=== PATIENT | female | born 1930 | race Caucasian/White ===

== ENCOUNTER 2017-06-20 14:26 | Emergency (ER) | payer OTHER ==
[2017-06-20 14:31] VITALS: BP 146/83; PULSE 100; TEMP 98.1; BMI 18.1
--- NOTE | 2017-06-20 16:20 | PDOC ---
History of Present Illness <Maco Dietrich - Last Filed: 06/20/17 19:31> - General History Source: Patient Exam Limitations: No Limitations - History of Present Illness Initial Comments: 06/20/17 16:04 Patient is an 87F with history of HTN here today complaining of leg swelling for the past three days. She denies associated chest pain, shortness of breath, nausea, vomiting, fevers and chills. She says that the right leg is more swollen than the left, with erythema on the right side. She denies any recent trauma. She denies any increased warmth in the leg. She denies any history of blood clots, cancer, recent travel or being bed bound. She states that she sleeps in a chair that is mostly upright because she gets short of breath with laying flat. <Eduardo Alvarado - Last Filed: 06/20/17 23:19> - General Chief Complaint: Edema Stated Complaint: SWELLING ANKLES/LEGS Time Seen by Provider: 06/20/17 14:57 Past History <Maco Dietrich - Last Filed: 06/20/17 19:31> - Past Medical History HTN: Yes - Suicide/Smoking/Psychosocial Hx Smoking History: Never smoked Have you smoked in the past 12 months: No Number of Cigarettes Smoked Daily: 0 Hx Alcohol Use: No Drug/Substance Use Hx: No Substance Use Type: None <Eduardo Alvarado - Last Filed: 06/20/17 23:19> - Past Medical History Allergies/Adverse Reactions: Allergies Allergy/AdvReac Type Severity Reaction Status Date / Time No Known Allergies Allergy Verified 06/20/17 14:31 Home Medications: Ambulatory Orders Telmisartan [Micardis] 20 mg PO DAILY 09/14/15 Rivaroxaban [Xarelto -] 15 mg PO BID #41 tab 06/20/17 Rivaroxaban [Xarelto -] 20 mg PO BID #28 tablet 06/20/17 Review of Systems - Review of Systems Comments:: 06/20/17 16:20 GENERAL/CONSTITUTIONAL: No fever or chills. No weakness. HEAD, EYES, EARS, NOSE AND THROAT: No change in vision. No sore throat. CARDIOVASCULAR: No chest pain or shortness of breath RESPIRATORY: No cough, wheezing, or hemoptysis. GASTROINTESTINAL: No nausea, vomiting, diarrhea or constipation. GENITOURINARY: No dysuria, frequency, or change in urination. MUSCULOSKELETAL: No joint or muscle swelling or pain. No neck or back pain. SKIN: No rash NEUROLOGIC: No headache, vertigo, loss of consciousness, or change in strength/ sensation. ALLERGIC/IMMUNOLOGIC: No hives or skin allergy. <Eduardo Alvarado - Last Filed: 06/20/17 23:19> *Physical Exam - Vital Signs Last Vital Signs Temp Pulse Resp BP Pulse Ox 98.1 F 100 H 20 146/83 96 06/20/17 14:28 06/20/17 14:28 06/20/17 14:28 06/20/17 14:28 06/20/17 14:28 <Maco Dietrich - Last Filed: 06/20/17 19:31> - Vital Signs Last Vital Signs Temp Pulse Resp BP Pulse Ox 98.1 F 100 H 20 146/83 96 06/20/17 14:28 06/20/17 14:28 06/20/17 14:28 06/20/17 14:28 06/20/17 14:28 - Physical Exam Comments: 06/20/17 16:22 GENERAL: Awake, alert, and fully oriented, in no acute distress HEAD: No signs of trauma, normocephalic, atraumatic EYES: PERRLA, EOMI, sclera anicteric, conjunctiva clear ENT: Auricles normal inspection, hearing grossly normal, nares patent, oropharynx clear without exudates. Moist mucosa NECK: Normal ROM, supple, no lymphadenopathy, JVD, or masses LUNGS: No distress, speaks full sentences, clear to auscultation bilaterally HEART: Regular rate and rhythm, normal S1 and S2, no murmurs, rubs or gallops, peripheral pulses normal and equal bilaterally. ABDOMEN: Soft, nontender, normoactive bowel sounds. No guarding, no rebound. No masses L LE+ pitting edema to ray, no erythema, normal cap refill, no cyanosis R LE+ pitting edema to ray, erythematous, normal cap refill, no cyanosis NEUROLOGICAL: Cranial nerves II through XII grossly intact. Normal speech, normal gait, no focal sensorimotor deficits SKIN: Warm, Dry, normal turgor, no rashes or lesions noted. <Eduardo Alvarado - Last Filed: 06/20/17 23:19> ED Treatment Course - LABORATORY CBC & Chemistry Diagram: 06/20/17 16:20 06/20/17 16:20 - ADDITIONAL ORDERS Additional order review: Laboratory Results 06/20/17 06/20/17 16:20 16:20 PT with INR 10.10 INR 0.92 Sodium 129 L Potassium 4.0 Chloride 90 L Carbon Dioxide 32 Anion Gap 7 L BUN 12 D Creatinine 0.5 L Creat Clearance w eGFR > 60 Random Glucose 95 Calcium 9.2 Magnesium 2.1 Total Bilirubin 0.3 D AST 22 ALT 21 Alkaline Phosphatase 90 Creatine Kinase 47 Troponin I < 0.02 B-Natriuretic Peptide 197.43 Total Protein 7.2 Albumin 3.7 06/20/17 16:20 RBC 3.95 MCV 91.2 MCHC 34.8 RDW 13.8 MPV 6.9 L Neutrophils % 74.9 Lymphocytes % 13.4 Monocytes % 10.0 Eosinophils % 1.2 Basophils % 0.5 - Medications Given in the ED: ED Medications Discontinued Medications Generic Name Dose Route Start Last Admin Trade Name Gilsonq PRN Reason Stop Dose Admin Rivaroxaban 15 mg 06/20/17 19:07 06/20/17 19:30 Xarelto - PO 06/20/17 19:08 15 mg ONCE ONE Administration <Maco Dietrich - Last Filed: 06/20/17 19:31> - LABORATORY CBC & Chemistry Diagram: 06/20/17 16:20 06/20/17 16:20 - RADIOLOGY Radiology Studies Ordered: Category Date Time Status CHEST X-RAY PORTABLE* [RAD] Stat Radiology 06/20/17 15:50 Ordered DUPLEX VASCUL US-1 LEG [US] Stat Ultrasound 06/20/17 15:51 Ordered <Eduardo Alvarado - Last Filed: 06/20/17 23:19> Medical Decision Making - Medical Decision Making 06/20/17 19:[address] Styles placed. Dr. Gil is absorption operator. Awaiting call back. <Maco Dietrich - Last Filed: 06/20/17 19:31> - Medical Decision Making 06/20/17 16:24 87F with history of HTN here today complaining of leg swelling, right more than left with erythema on the right side. Tachycardic to 100. Vital signs otherwise normal. Differential diagnosis includes, but is not limited to: DVT, CHF exacerbation, kidney failure, cellulitis. Will evaluate with labs, cxr, dvt ultrasound, and ecg. 06/20/17 17:24 Laboratory Tests 06/20/17 06/20/17 16:20 16:20 WBC 7.2 Hgb 12.5 Hct 36.0 Plt Count 318 Sodium 129 L Chloride 90 L BUN 12 D Creatinine 0.5 L Troponin I < 0.02 B-Natriuretic Peptide 197.43 CBC normal. CMP shows sodium of 129, chloride of 90. Trop neg, BNP neg. 06/20/17 17:33 EKG shows normal sinus rhythm, normal rate, normal axis. QTC 423. No st elevations. No t-wave abnormalities. 06/20/17 23:18 Ultrasound shows DVT in popliteal vein. Started on xeralto. Plan discussed with PCP team, agrees with plan to discharge. Discharged with tight PCP follow up. <Eduardo Alvarado - Last Filed: 06/20/17 23:19> *DC/Admit/Observation/Transfer <Maco Dietrich - Last Filed: 06/20/17 19:31> <Eduardo Alvarado - Last Filed: 06/20/17 23:19> Diagnosis at time of Disposition: DVT (deep venous thrombosis) Qualifiers: DVT location: lower extremity Affected thrombotic vein of extremity: popliteal Chronicity: acute Laterality: right Qualified Code(s): I82.431 - Acute embolism and thrombosis of right popliteal vein - Discharge Dispostion Disposition: HOME Condition at time of disposition: Good - Prescriptions Prescriptions: Rivaroxaban [Xarelto -] 15 mg PO BID #41 tab Rivaroxaban [Xarelto -] 20 mg PO BID #28 tablet - Referrals Referrals: Eduardo Styles MD [Primary Care Provider] - - Patient Instructions Printed Discharge Instructions: DI for Deep Vein Thrombosis
[2017-06-20 16:31] LABS: BASOPHIL 0.5 % (0-2.0); EOSINOPHIL 1.2 % (0-4.5); MCH 31.8 pg (25.7-33.7); MCHC 34.8 g/dl (32.0-36.0); MEAN CELL VOLUME 91.2 fl (80-96); MEAN PLT VOLUME 6.9 fl (7.5-11.1); NEUTROPHILS 74.9 % (42.8-82.8); PLATELET COUNT 318 K/MM3 (134-434); RDW 13.8 % (11.6-15.6); WHITE BLOOD COUNT 7.2 K/mm3 (4.0-10.0)
--- NOTE | 2017-06-20 16:35 | PDOC ---
Attending Attestation - Resident Resident Name: Eduardo Alvarado - ED Attending Attestation I have performed the following: I have examined & evaluated the patient, The case was reviewed & discussed with the resident, I agree w/resident's findings & plan, Exceptions are as noted - HPI HPI: 06/20/17 16:29 87 yo F with h/o HTN here with 3 days of leg swelling, right greater than left. no history of dvt or pe no recent travel. no cp or sob. no mod factors. no fever. no pain. no injury. does have remote history of breast ca over 10 years ago. no recurrence. - Physicial Exam PE: 06/20/17 16:31 on exam awake alert lungs clear heart rrr no mrg. abd soft nt nd. ext wwp. bilat edema. R> L. mild erythema right lower anterior ray, no warmth. no crepitus. 2 + dp/ pt. - Medical Decision Making 06/20/17 16:35 differential chf, cellulitis, renal failure, dvt. plan labs ekg cxr doppler right leg. if all negative plan to treat for cellulitis with outpt abx, and followup outpt.
[2017-06-20 16:52] LABS: INR 0.92 (0.82-1.09); PROTHROMBIN TIME (PATIENT) 10.1 SEC (9.98-11.88)
[2017-06-20 17:09] LABS: ALBUMIN 3.7 g/dl (3.4-5.0); ANION GAP 7 (8-16); BILIRUBIN,TOTAL 0.3 mg/dL (0.2-1.0); CALCIUM 9.2 mg/dL (8.5-10.1); CO2 32 mmol/L (21-32); CREATININE 0.5 mg/dL (0.55-1.02); GLUCOSE,RANDOM 95 mg/dL (74-106); MAGNESIUM 2.1 mg/dL (1.8-2.4); SGOT/AST 22 U/L (15-37); SGPT/ALT 21 U/L (12-78); TOT PROT 7.2 g/dl (6.4-8.2)
[2017-06-20 17:12] LABS: ALK PHOS 90 U/L (45-117); CPK 47 IU/L (26-192); TROPONIN I < 0.02 ng/ml (0.00-0.05)
[2017-06-20] MEDS ORDERED: RIVAROXABAN 15 MG TABLET PO ONE (19:07)
--- NOTE | 2017-06-21 08:37 | EKG ---
Test Reason : Blood Pressure : / mmHG Vent. Rate : 068 BPM Atrial Rate : 068 BPM P-R Int : 188 ms QRS Dur : 100 ms QT Int : 398 ms P-R-T Axes : 057 -18 028 degrees QTc Int : 423 ms POOR DATA QUALITY, INTERPRETATION MAY BE ADVERSELY AFFECTED NORMAL SINUS RHYTHM SEPTAL INFARCT (CITED ON OR BEFORE 21-JUN-1999) ABNORMAL ECG Confirmed by MD ROSALEE, XIN ([id number]) on 06/21/2017 8:37:30 AM Referred By: Confirmed By:XIN TURK MD
== END 2017-06-20 19:48 | disposition home or self-care (01) ==
LOC: JER 14:26
DX: I82.431 Acute embolism and thrombosis of right popliteal vein (principal); I10 Essential (primary) hypertension
CPT/HCPCS: 36415; 71010-TC; 80053; 83735; 83880; 84484; 85025; 85610; 93005; 93010; 93971-TC; 99281-25

== ENCOUNTER → 2017-11-13 | Day surgery (SDC) | payer OTHER ==
[2017-11-13 09:19] LABS: BASO % 0.6 % (0-2.0); EOS % 0.8 % (0-4.5); HEMATOCRIT 35.7 % (32.4-45.2); HEMOGLOBIN 11.6 GM/dL (10.7-15.3); LYMPH % 20.9 % (8-40); MCH 28.5 pg (25.7-33.7); MCHC 32.4 g/dl (32.0-36.0); MEAN CELL VOLUME 87.8 fl (80-96); MEAN PLT VOLUME 7.2 fl (7.5-11.1); MONO % 10.8 % (3.8-10.2); NEUT % 66.9 % (42.8-82.8); PLATELET COUNT 385 K/MM3 (134-434); RBC 4.06 M/mm3 (3.60-5.2); RDW 14.6 % (11.6-15.6); WHITE BLOOD COUNT 7.9 K/mm3 (4.0-10.0)
[2017-11-13 09:42] LABS: INR 0.96 (0.82-1.09); PROTHROMBIN TIME (PATIENT) 10.9 SEC (9.98-11.88)
== END | disposition home or self-care (01) ==
LOC: JRADIR 09:00
PROVIDERS: ATTEND Internal Medicine
PROC: BQ01YZZ Plain Radiography of Left Hip using Other Contrast (ICD-10-PCS; principal; 2017-11-13)
PROC: 3E0U33Z Introduction of Anti-inflammatory into Joints, Percutaneous Approach (ICD-10-PCS; 2017-11-13)
DX: M16.12 Unilateral primary osteoarthritis, left hip (principal); M25.552 Pain in left hip
CPT/HCPCS: 27093; 36415; 73525-TC-FY; 76000-TC-FY; 85025; 85610

== ENCOUNTER 2017-11-18 12:20 | Inpatient (IN) | payer OTHER ==
--- NOTE | 2017-11-18 14:16 | PDOC ---
History of Present Illness - General Chief Complaint: Injury Stated Complaint: FALL Time Seen by Provider: 11/18/17 13:52 History Source: Patient Exam Limitations: No Limitations - History of Present Illness Initial Comments: 11/18/17 14:09 87F with pmh of HTN and DVT on xarelto presents to the ED after an unwitnessed fall where she tripped and fell on her back, no LOC, unwitnessed. Was found 10min later by her son, helped her get back up as she couldnt get back up on her own. Denies headache, nausea, vomiting 11/18/17 15:23 11/18/17 17:31 Past History - Past Medical History Allergies/Adverse Reactions: Allergies Allergy/AdvReac Type Severity Reaction Status Date / Time No Known Allergies Allergy Verified 11/18/17 12:33 Home Medications: Ambulatory Orders Telmisartan [Micardis] 20 mg PO DAILY 09/14/15 Rivaroxaban [Xarelto -] 15 mg PO BID #41 tab 06/20/17 Rivaroxaban [Xarelto -] 20 mg PO BID #28 tablet 06/20/17 COPD: No DVT: Yes (on blood thinner) HTN: Yes - Suicide/Smoking/Psychosocial Hx Smoking History: Never smoked Have you smoked in the past 12 months: No Number of Cigarettes Smoked Daily: 0 Hx Alcohol Use: No Drug/Substance Use Hx: No Substance Use Type: None Review of Systems - Review of Systems Able to Perform ROS?: Yes Is the patient limited Ukrainian proficient: No Constitutional: No: Symptoms Reported HEENTM: No: Symptoms Reported Respiratory: No: Symptoms reported Cardiac (ROS): Yes: Chest Pain (right parasternal) ABD/GI: No: Symptoms Reported : No: Symptoms Reported Musculoskeletal: Yes: Back Pain Integumentary: No: Symptoms Reported Neurological: No: Symptoms reported *Physical Exam - Vital Signs Last Vital Signs Temp Pulse Resp BP Pulse Ox 97.2 F L 81 18 131/66 97 11/18/17 12:30 11/18/17 12:30 11/18/17 12:30 11/18/17 12:30 11/18/17 12:30 - Physical Exam General Appearance: Yes: Appropriately Dressed, Thin. No: Apparent Distress HEENT: positive: EOMI, EDGAR. negative: Normal ENT Inspection Respiratory/Chest: positive: Lungs Clear, Normal Breath Sounds. negative: Chest Tender, Respiratory Distress Cardiovascular: positive: Regular Rhythm, Regular Rate, S1, S2 Female Pelvic Exam: positive: normal external exam Gastrointestinal/Abdominal: positive: Normal Bowel Sounds, Flat, Soft. negative : Tender Musculoskeletal: positive: Other (pain in parasternal chest on the right and back rib pain on the right). negative: CVA Tenderness Extremity: positive: Normal Capillary Refill, Normal Inspection Integumentary: positive: Normal Color, Dry, Warm Neurologic: positive: Fully Oriented, Alert, Normal Mood/Affect ED Treatment Course - LABORATORY CBC & Chemistry Diagram: 11/18/17 14:38 11/18/17 14:38 Medical Decision Making - Medical Decision Making 11/18/17 15:[address] will evaluate potential source of fall, ekg, cxr, 11/18/17 17:54 elevated wbc count. hyponatremic. Dr styles, pcp, paged 11/18/17 19:16 Patient signed out to Dr. Szymanski *DC/Admit/Observation/Transfer - Referrals Referrals: Eduardo Styles MD [Primary Care Provider] - - Patient Instructions - Post Discharge Activity
[2017-11-18 15:01] LABS: HEMATOCRIT 33.9 % (32.4-45.2); HEMOGLOBIN 10.9 GM/dL (10.7-15.3); MCH 27.7 pg (25.7-33.7); MCHC 32.2 g/dl (32.0-36.0); MEAN PLT VOLUME 7.1 fl (7.5-11.1); PLATELET COUNT 357 K/MM3 (134-434); RBC 3.94 M/mm3 (3.60-5.2); RDW 14.2 % (11.6-15.6); WHITE BLOOD COUNT 26.6 K/mm3 (4.0-10.0)
[2017-11-18 15:25] LABS: ALBUMIN 3.4 g/dl (3.4-5.0); ANION GAP 12 (8-16); BILIRUBIN,TOTAL 0.4 mg/dL (0.2-1.0); BLOOD UREA NITROGEN 12 mg/dL (7-18); CALCIUM 9.4 mg/dL (8.5-10.1); CHLORIDE 91 mmol/L (98-107); CO2 29 mmol/L (21-32); CREATININE 0.5 mg/dL (0.55-1.02); GLUCOSE,RANDOM 138 mg/dL (74-106); POTASSIUM 3.5 mmol/L (3.5-5.1); SGOT/AST 37 U/L (15-37); SGPT/ALT 39 U/L (12-78); SODIUM 132 mmol/L (136-145); TOT PROT 6.8 g/dl (6.4-8.2)
[2017-11-18 15:26] LABS: ALK PHOS 80 U/L (45-117)
[2017-11-18 15:55] LABS: INR 2.04 (0.82-1.09); PROTHROMBIN TIME (PATIENT) 23.1 SEC (9.98-11.88)
[2017-11-18 15:56] LABS: ANISOCYTOSIS 0; MACROCYTOSIS 0; PLATELET ESTIMATE NORMAL
[2017-11-18] MEDS ORDERED: SODIUM CHLORIDE 1,000 ML IV STA (18:09)
--- NOTE | 2017-11-18 19:45 | PDOC ---
*Physical Exam - Vital Signs Last Vital Signs Temp Pulse Resp BP Pulse Ox 97.2 F L 81 18 131/66 97 11/18/17 12:30 11/18/17 12:30 11/18/17 12:30 11/18/17 12:30 11/18/17 12:30 - Physical Exam Comments: 11/18/17 19:58 General Appearance: Nourished. No Apparent Distress HEENT: No Pharyngeal Erythema, Tonsillar Exudate, Tonsillar Erythema Neck: No Cervical Lymphadenopathy Respiratory/Chest: Lungs Clear, Normal Breath Sounds. No Crackles, Rales, Rhonchi, Wheezing Cardiovascular: Regular Rhythm, Regular Rate. No Murmur, Gallops, Rubs Gastrointestinal/Abdominal: Normal Bowel Sounds, Soft. No Guarding, Rebound, Tenderness Musculoskeletal: No CVA Tenderness Extremity: Normal Capillary Refill Integumentary: Normal Color, Dry, Warm Neurologic: Fully Oriented, Alert, Normal Mood/Affect, Normal Response, ED Treatment Course - LABORATORY CBC & Chemistry Diagram: 11/18/17 14:38 11/18/17 14:38 - ADDITIONAL ORDERS Additional order review: Laboratory Results 11/18/17 11/18/17 11/18/17 14:51 14:38 14:38 PT with INR 23.10 H INR 2.04 H D Sodium 132 L Potassium 3.5 Chloride 91 L Carbon Dioxide 29 Anion Gap 12 BUN 12 Creatinine 0.5 L Creat Clearance w eGFR > 60 Random Glucose 138 H Calcium 9.4 Total Bilirubin 0.4 D AST 37 ALT 39 Alkaline Phosphatase 80 Troponin I < 0.02 Total Protein 6.8 Albumin 3.4 11/18/17 14:38 RBC 3.94 MCV 86.0 MCHC 32.2 RDW 14.2 MPV 7.1 L Neutrophils % No Result Required. Lymphocytes % No Result Required. - Medications Given in the ED: ED Medications Discontinued Medications Generic Name Dose Route Start Last Admin Trade Name Freq PRN Reason Stop Dose Admin Sodium Chloride 1,000 mls @ 1,000 mls/hr 11/18/17 18:09 11/18/17 18:29 Normal Saline - IV 11/18/17 19:08 1,000 mls/hr ASDIR STA Administration Progress Note - Progress Note Progress Note: The patient is an 87 year old female who presents for evaluation following an unwitnessed fall. The patient's lab work was remarkable for a leukocytosis with 80% bands. She is pending admission for an unexplained leukocytosis to 26 and unwitnessed fall. Medical Decision Making - Medical Decision Making 11/18/17 20:22 Discussed the case with the hospitalist team who accepted the patient for admission. *DC/Admit/Observation/Transfer Diagnosis at time of Disposition: Leukocytosis Qualifiers: Leukocytosis type: unspecified Qualified Code(s): D72.829 - Elevated white blood cell count, unspecified Fall Qualifiers: Encounter type: initial encounter Qualified Code(s): W19.XXXA - Unspecified fall, initial encounter - Discharge Dispostion Condition at time of disposition: Stable Admit: Yes - Referrals Referrals: Eduardo Styles MD [Primary Care Provider] - - Patient Instructions - Post Discharge Activity
--- NOTE | 2017-11-18 20:26 | HP ---
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 The son that lives with her had been out for about 45mins walking the dog, so does not know for how long she was down. Patient usually ambulates with a walker because of previous R hip replacement and L hip now in need of replacement. She was found close to the stairs (the son assumed she crawled there from the room and dresser to try to get herself up). He also found the walker in the kitchen, while her glasses and lifelock where found on the dresser with change of clothes, indicating she probably fell in the room because she was using the cane and and not the walker. Due to patient's dementia, it is difficult to confirm if she hit her head or not, or lost consciousness, or had seizures. However, no urinary or fecal soiling were noted. At baseline, Pt is able to carry out activities of daily living including cooking, but is forgetful especially of dates and names ( of her son). She assumed she fell in the kitchen, but was found in the [address] so her history cannot be corroborated. No palpitations, no fever, no CP, no diaphoresis, weakness of any part of her body. Urine described as limited qnt and deep colored/reddish by son ER course was notable for: (1) WBC-26.6, INR-2.04, Na-132, Cl-91, trop <0.02 (2) CT head- No interval change , or acute intracran pathology (3) EKG- pending (4) UA- pending (5) urine/ bld cx (6) Received 1L of NS in ED Recent Travel: PAST MEDICAL HISTORY: dementia, HTN, DVT (on xarelto), recurrent falls (last fall 9months ago before use of walker) R breast cancer (2010) PAST SURGICAL HISTORY: R hip replacement R breast surgery (likely lumpectomy) Social History: Smoking: Alcohol: Drugs: Family History: Allergies No Known Allergies Allergy (Verified 11/18/17 12:33) HOME MEDICATIONS: Home Medications Medication Instructions Recorded Telmisartan [Micardis] 20 mg PO DAILY 09/14/15 Rivaroxaban [Xarelto -] 20 mg PO BID #28 tablet 06/20/17 REVIEW OF SYSTEMS CONSTITUTIONAL: Absent: fever, chills, diaphoresis, generalized weakness, malaise, loss of appetite, weight change HEENT: Absent: rhinorrhea, nasal congestion, throat pain, throat swelling, difficulty swallowing, mouth swelling, ear pain, eye pain, visual changes CARDIOVASCULAR: Absent: chest pain, syncope, palpitations, irregular heart rate, lightheadedness , peripheral edema RESPIRATORY: Absent: cough, shortness of breath, dyspnea with exertion, orthopnea, wheezing, stridor, hemoptysis GASTROINTESTINAL: Absent: abdominal pain, abdominal distension, nausea, vomiting, diarrhea, constipation, melena, hematochezia GENITOURINARY: Absent: dysuria, frequency, urgency, hesitancy, hematuria, flank pain, genital pain MUSCULOSKELETAL: Absent: myalgia, arthralgia, joint swelling, back pain, neck pain SKIN: Absent: rash, itching, pallor HEMATOLOGIC/IMMUNOLOGIC: Absent: easy bleeding, easy bruising, lymphadenopathy, frequent infections ENDOCRINE: Absent: unexplained weight gain, unexplained weight loss, heat intolerance, cold intolerance NEUROLOGIC: Absent: headache, focal weakness or paresthesias, dizziness, unsteady gait, seizure, mental status changes, bladder or bowel incontinence PSYCHIATRIC: Absent: anxiety, depression, suicidal or homicidal ideation, hallucinations. PHYSICAL EXAMINATION Vital Signs - 24 hr 11/18/17 12:30 Temperature 97.2 F L Pulse Rate 81 Respiratory 18 Rate Blood Pressure 131/66 O2 Sat by Pulse 97 Oximetry (%) GENERAL: Awake, alert, and fully oriented, in no acute painful distress. HEAD: Normal with no signs of trauma, no bleeding from any orifice. EYES: Pupils equal, round and reactive to light, extraocular movements intact, sclera anicteric, conjunctiva clear. EARS, NOSE, THROAT: Ears normal, nares patent, oropharynx clear without exudates. Moist mucous membranes. NECK: Normal range of motion, supple without lymphadenopathy, JVD. LUNGS: Breath sounds equal, clear to auscultation bilaterally. No wheezes, and no crackles. HEART: Regular rate and rhythm, normal S1 and S2 ABDOMEN: Soft, nontender, not distended, normoactive bowel sounds, no guarding, no rebound, no masses. MUSCULOSKELETAL: Normal range of motion at all joints in UE. Limited hip flexion L>R. Muscle strength 4/5 RLE, 3/5 LLE. Normal sensations UPPER EXTREMITIES: 2+ pulses, warm, well-perfused. No cyanosis. No clubbing. No peripheral edema. LOWER EXTREMITIES: 2+ pulses, warm, well-perfused. No calf tenderness. No peripheral edema. Limited hip flexion L>R. Muscle strength 4/5 RLE, 3/5 LLE. Normal sensations bilaterally NEUROLOGICAL: Cranial nerves II-XII intact. Normal speech. Gait not observed. PSYCHIATRIC: Cooperative. Good eye contact. Appropriate mood and affect. CBC, BMP 11/18/17 14:38 11/18/17 14:38 Laboratory Results - last 24 hr 11/18/17 11/18/17 11/18/17 14:38 14:38 14:38 WBC 26.6 H D RBC 3.94 Hgb 10.9 Hct 33.9 MCV 86.0 MCH 27.7 MCHC 32.2 RDW 14.2 Plt Count 357 MPV 7.1 L Neutrophils % No Result Required. Neutrophils % (Manual) 78.0 Band Neutrophils % 8.0 Lymphocytes % No Result Required. Lymphocytes % (Manual) 7.0 L Monocytes % (Manual) 6 Eosinophils % (Manual) 0.0 Basophils % (Manual) 0.0 Myelocytes % (Man) 0 Promyelocytes % (Man) 0 Nucleated RBC % 0 Metamyelocytes 0 Hypochromia 0 Platelet Estimate Normal Polychromasia 0 Poikilocytosis 0 Anisocytosis 0 Microcytosis 0 Macrocytosis 0 PT with INR 23.10 H INR 2.04 H D Sodium 132 L Potassium 3.5 Chloride 91 L Carbon Dioxide 29 Anion Gap 12 BUN 12 Creatinine 0.5 L Creat Clearance w eGFR > 60 Random Glucose 138 H Calcium 9.4 Total Bilirubin 0.4 D AST 37 ALT 39 Alkaline Phosphatase 80 Troponin I Total Protein 6.8 Albumin 3.4 11/18/17 14:51 WBC RBC Hgb Hct MCV MCH MCHC RDW Plt Count MPV Neutrophils % Neutrophils % (Manual) Band Neutrophils % Lymphocytes % Lymphocytes % (Manual) Monocytes % (Manual) Eosinophils % (Manual) Basophils % (Manual) Myelocytes % (Man) Promyelocytes % (Man) Nucleated RBC % Metamyelocytes Hypochromia Platelet Estimate Polychromasia Poikilocytosis Anisocytosis Microcytosis Macrocytosis PT with INR INR Sodium Potassium Chloride Carbon Dioxide Anion Gap BUN Creatinine Creat Clearance w eGFR Random Glucose Calcium Total Bilirubin AST ALT Alkaline Phosphatase Troponin I < 0.02 Total Protein Albumin ASSESSMENT/PLAN: 87 F with PMHx of dementia, R breast cancer, HTN, DVT (on xarelto), recurrent falls in past, found on the floor by her son s/p fall. S/p Unwitnessed Fall: Most likely mechanical Hx of hip replacement, and need for hip replacement on other side Pt likely used her cane instead of walker Pt is on xarelto, INR- 2.04 CT head- no acute intracran pathology CXR -pending official read Xray hip, pelvis- bilateral Received 1L NS in ED Repeat coags in am Iv normal saline @42/hr EKG- pending Leucocytosis: WBC- 26.6 Afebrile, no other SIRS criteria at this time Pending CXR read Follow UA Bld/urine cx pending Xray hip, pelvis- bilateral HTN: Hypotensive at this time Hold ho,me telmisartan iv normal saline monitor DVT hx on xarelto: Elevated INR-2.04 Confirm medication dose and who administers Repeat coags in am Follow Xray hip, pelvis- bilateral Follow UA FEN: Iv normal saline Monitor lytes and replete as needed Sodium free diet PPX: Currently INR-2.04 on xarelto Hold chemical PPx for now SCDs Dispo: Obs- Med surg Visit type - Emergency Visit Emergency Visit: Yes ED Registration Date: 11/18/17 Care time: The patient presented to the Emergency Department on the above date and was hospitalized for further evaluation of their emergent condition. - New Patient This patient is new to me today: Yes Date on this admission: 11/19/17 - Critical Care Critical Care patient: No Hospitalist Screening - Colonoscopy Questionnaire Colonoscopy Questionnaire: Colonoscopy Questionnaire - Patient: 50 - 75 years old and never had a screening colonoscopy: No History of colon or rectal polyps, or CA: No History of IBD, Crohn's disease or UC: No History of abdominal radiation therapy as a child: No - Relative: 1 with colon or rectal CA, or polyps at age 60 or younger: No Colon or rectal CA diagnosed at age 45 or younger: No Multiple relatives with colon or rectal CA: No - Outcome: Screening Result: Negative Screen
--- NOTE | 2017-11-18 22:16 | PN ---
Teaching Attending Note Name of Resident: Radha Tran Ericka ATTENDING PHYSICIAN STATEMENT I saw and evaluated the patient. I reviewed the resident's note and discussed the case with the resident. I agree with the resident's findings and plan as documented. SUBJECTIVE: OBJECTIVE: Vital Signs Period Temp Pulse Resp BP Sys/Michel Pulse Ox Last 24 Hr 97.2 F-98.1 F 81-93 18-18 123-131/61-66 97-98 Laboratory Tests 11/18/17 11/18/17 11/18/17 14:38 14:38 14:38 WBC 26.6 H D RBC 3.94 Hgb 10.9 Hct 33.9 MCV 86.0 MCH 27.7 MCHC 32.2 RDW 14.2 Plt Count 357 MPV 7.1 L Neutrophils % No Result Required. Neutrophils % (Manual) 78.0 Band Neutrophils % 8.0 Lymphocytes % No Result Required. Lymphocytes % (Manual) 7.0 L Monocytes % (Manual) 6 Eosinophils % (Manual) 0.0 Basophils % (Manual) 0.0 Myelocytes % (Man) 0 Promyelocytes % (Man) 0 Nucleated RBC % 0 Metamyelocytes 0 Hypochromia 0 Platelet Estimate Normal Polychromasia 0 Poikilocytosis 0 Anisocytosis 0 Microcytosis 0 Macrocytosis 0 PT with INR 23.10 H INR 2.04 H D Sodium 132 L Potassium 3.5 Chloride 91 L Carbon Dioxide 29 Anion Gap 12 BUN 12 Creatinine 0.5 L Creat Clearance w eGFR > 60 Random Glucose 138 H Calcium 9.4 Total Bilirubin 0.4 D AST 37 ALT 39 Alkaline Phosphatase 80 Troponin I Total Protein 6.8 Albumin 3.4 11/18/17 14:51 WBC RBC Hgb Hct MCV MCH MCHC RDW Plt Count MPV Neutrophils % Neutrophils % (Manual) Band Neutrophils % Lymphocytes % Lymphocytes % (Manual) Monocytes % (Manual) Eosinophils % (Manual) Basophils % (Manual) Myelocytes % (Man) Promyelocytes % (Man) Nucleated RBC % Metamyelocytes Hypochromia Platelet Estimate Polychromasia Poikilocytosis Anisocytosis Microcytosis Macrocytosis PT with INR INR Sodium Potassium Chloride Carbon Dioxide Anion Gap BUN Creatinine Creat Clearance w eGFR Random Glucose Calcium Total Bilirubin AST ALT Alkaline Phosphatase Troponin I < 0.02 Total Protein Albumin Home Medications Medication Instructions Recorded Telmisartan [Micardis] 20 mg PO DAILY 09/14/15 Rivaroxaban [Xarelto -] 20 mg PO BID #28 tablet 06/20/17 ASSESSMENT AND PLAN:
[2017-11-18] MEDS ORDERED: SODIUM CHLORIDE 1,000 ML IV SCH (22:45)
--- NOTE | 2017-11-18 23:32 | PDOC ---
Attending Attestation - Resident Resident Name: iRp Hoyt - ED Attending Attestation I have performed the following: I have examined & evaluated the patient, The case was reviewed & discussed with the resident, I agree w/resident's findings & plan, Exceptions are as noted - HPI HPI: 11/18/17 23:29 87yo F hx dementia, R breast cancer, hip replacement, HTN, DVT on xarelto recurrent falls presents to ED with unwitnessed fall. The patient reports having a fall earlier today, stating that she tripped injuring her back. Pt is not clear on how or what she tripped on, and does not remember how she felt prior to falling. Denies head strike or LOC. Pt's son returned home after walking the dog and found her on the ground. She reports pain in her upper back and sternum, She denies recent fevers, chills, headache or dizziness. She denies recent nausea, vomit, diarrhea or constipation. She denies recent dysuria, frequency, urgency or hematuria. She denies recent chest pain or shortness of breath. Allergies: NKA Past surgical history: None reported. - Physicial Exam PE: 11/18/17 23:32 GENERAL: Awake, alert, and fully oriented, in no acute distress HEAD: No signs of trauma EYES: PERRLA, EOMI, sclera anicteric, conjunctiva clear ENT: Auricles normal inspection, hearing grossly normal, nares patent, oropharynx clear without exudates. Moist mucosa NECK: Normal ROM, supple, no lymphadenopathy, JVD, or masses LUNGS: Breath sounds equal, clear to auscultation bilaterally. No wheezes, and no crackles HEART: Regular rate and rhythm, normal S1 and S2, no murmurs, rubs or gallops ABDOMEN: Soft, nontender, normoactive bowel sounds. No guarding, no rebound. No masses EXTREMITIES: Normal range of motion, no edema. No clubbing or cyanosis. No cords , erythema, or tenderness. 2+peripheral pulses BACK: No midline spinal tenderness in cervical/thoracic/lumbar region NEUROLOGICAL: Normal speech, cranial nerves intact, negative pronator drift, 5/ 5 strength in all 4 extremities, normal sensation to light touch in all 4 extremities, gait deferred. SKIN: Warm, Dry, normal turgor, no rashes or lesions noted. - Medical Decision Making 11/18/17 23:34 87yo F presents to ED with unwitnessed fall. Vitals and exam wnl. EKG non ischemic. Unclear mechanical fall vs syncope, hx limited due to dementia. Bloodwork c/f new leukocytosis, and mild hyponatremia. Will obtain infectious work up and admit pt.
[2017-11-19] MEDS: ACETAMINOPHEN 325 MG TABLET (FP) PO PRN (00:34)
[2017-11-19] MEDS ORDERED: ACETAMINOPHEN 325 MG TABLET (FP) ONE (03:01)
[2017-11-19] MEDS ORDERED: morphine SULFATE 4 MG/ML VIAL IVPUSH PRN (04:44)
[2017-11-19 05:50] VITALS: BMI 18.2
--- NOTE | 2017-11-19 07:57 | PN ---
Physical Exam: SUBJECTIVE: Patient seen and examined OBJECTIVE: Vital Signs Period Temp Pulse Resp BP Sys/Michel Pulse Ox Last 24 Hr 97.2 F-98.6 F 73-93 17-20 123-131/61-70 90-98 GENERAL: The patient is awake, alert, and fully oriented, in no acute distress. HEAD: Normal with no signs of trauma. EYES: PERRL, extraocular movements intact, sclera anicteric, conjunctiva clear. No ptosis. ENT: Ears normal, nares patent, oropharynx clear without exudates, moist mucous membranes. NECK: Trachea midline, full range of motion, supple. LUNGS: Breath sounds equal, clear to auscultation bilaterally, no wheezes, no crackles, no accessory muscle use. HEART: Regular rate and rhythm, S1, S2 without murmur, rub or gallop. ABDOMEN: Soft, nontender, nondistended, normoactive bowel sounds, no guarding, no rebound, no hepatosplenomegaly, no masses. EXTREMITIES: 2+ pulses, warm, well-perfused, no edema. NEUROLOGICAL: Cranial nerves II through XII grossly intact. Normal speech, gait not observed. PSYCH: Normal mood, normal affect. SKIN: Warm, dry, normal turgor, no rashes or lesions noted Laboratory Results - last 24 hr 11/18/17 11/18/17 11/18/17 14:38 14:38 14:38 WBC 26.6 H D RBC 3.94 Hgb 10.9 Hct 33.9 MCV 86.0 MCH 27.7 MCHC 32.2 RDW 14.2 Plt Count 357 MPV 7.1 L Neutrophils % No Result Required. Neutrophils % (Manual) 78.0 Band Neutrophils % 8.0 Lymphocytes % No Result Required. Lymphocytes % (Manual) 7.0 L Monocytes % (Manual) 6 Eosinophils % (Manual) 0.0 Basophils % (Manual) 0.0 Myelocytes % (Man) 0 Promyelocytes % (Man) 0 Nucleated RBC % 0 Metamyelocytes 0 Hypochromia 0 Platelet Estimate Normal Polychromasia 0 Poikilocytosis 0 Anisocytosis 0 Microcytosis 0 Macrocytosis 0 PT with INR 23.10 H INR 2.04 H D Sodium 132 L Potassium 3.5 Chloride 91 L Carbon Dioxide 29 Anion Gap 12 BUN 12 Creatinine 0.5 L Creat Clearance w eGFR > 60 Random Glucose 138 H Calcium 9.4 Total Bilirubin 0.4 D AST 37 ALT 39 Alkaline Phosphatase 80 Troponin I Total Protein 6.8 Albumin 3.4 11/18/17 14:51 WBC RBC Hgb Hct MCV MCH MCHC RDW Plt Count MPV Neutrophils % Neutrophils % (Manual) Band Neutrophils % Lymphocytes % Lymphocytes % (Manual) Monocytes % (Manual) Eosinophils % (Manual) Basophils % (Manual) Myelocytes % (Man) Promyelocytes % (Man) Nucleated RBC % Metamyelocytes Hypochromia Platelet Estimate Polychromasia Poikilocytosis Anisocytosis Microcytosis Macrocytosis PT with INR INR Sodium Potassium Chloride Carbon Dioxide Anion Gap BUN Creatinine Creat Clearance w eGFR Random Glucose Calcium Total Bilirubin AST ALT Alkaline Phosphatase Troponin I < 0.02 Total Protein Albumin Active Medications Generic Name Dose Route Start Last Admin Trade Name Freq PRN Reason Stop Dose Admin Acetaminophen 650 mg 11/18/17 22:45 11/19/17 00:34 Tylenol - PO 650 mg Q6H PRN Administration FEVER Sodium Chloride 1,000 mls @ 42 mls/hr 11/18/17 22:45 11/19/17 00:34 Normal Saline - IV 42 mls/hr ASDIR ELY Administration Morphine Sulfate 2 mg 11/19/17 04:44 Morphine Sulfate IVPUSH Q6H PRN PAIN LEVEL 6-10 Pneumococcal 13-Valent Conj Vacc 0.5 ml 11/19/17 11:00 Prevnar 13 Syringe - IM 11/19/17 11:01 .ONCE ONE ASSESSMENT/PLAN:
[2017-11-19 08:59] LABS: URINE BILIRUBIN NEGATIVE (NEGATIVE); URINE BLOOD 3+ (NEGATIVE); URINE GLUCOSE (UA) NEGATIVE (NEGATIVE); URINE KETONE TRACE (NEGATIVE); URINE LEUK ESTERASE 1+ (NEGATIVE); URINE NITRITE NEGATIVE (NEGATIVE); URINE PROTEIN 2+ (NEGATIVE); URINE UROBILINOGEN NEGATIVE mg/dL (0.2-1.0)
[2017-11-19 09:00] LABS: URINE APPEARANCE TURBID; URINE COLOR DK YELLOW
[2017-11-19 09:04] LABS: ALBUMIN 3.1 g/dl (3.4-5.0); ALK PHOS 78 U/L (45-117); ANION GAP 14 (8-16); BILIRUBIN,TOTAL 0.6 mg/dL (0.2-1.0); BLOOD UREA NITROGEN 12 mg/dL (7-18); CALCIUM 8.6 mg/dL (8.5-10.1); CHLORIDE 86 mmol/L (98-107); CO2 26 mmol/L (21-32); CREATININE 0.3 mg/dL (0.55-1.02); GLUCOSE,RANDOM 98 mg/dL (74-106); PHOSPHOROUS 3.2 mg/dL (2.5-4.9); POTASSIUM 3.7 mmol/L (3.5-5.1); SGOT/AST 42 U/L (15-37); SGPT/ALT 32 U/L (12-78); SODIUM 126 mmol/L (136-145); TOT PROT 6.2 g/dl (6.4-8.2)
[2017-11-19 09:09] LABS: URINE BACTERIA MODERATE /hpf (NONE SEEN)
[2017-11-19 09:11] LABS: BASO % 0.2 % (0-2.0); HEMATOCRIT 30.2 % (32.4-45.2); HEMOGLOBIN 10.1 GM/dL (10.7-15.3); LYMPH % 6.9 % (8-40); MCH 28.4 pg (25.7-33.7); MCHC 33.4 g/dl (32.0-36.0); MONO % 9.2 % (3.8-10.2); NEUT % 83.7 % (42.8-82.8); PLATELET COUNT 314 K/MM3 (134-434); RBC 3.56 M/mm3 (3.60-5.2); RDW 14.3 % (11.6-15.6); WHITE BLOOD COUNT 12.4 K/mm3 (4.0-10.0)
--- NOTE | 2017-11-19 09:23 | PN ---
Progress Note (short form) - Note Progress Note: patient seen and examined. Emergency room notes reviewed; patient's son Christofer is at the bedside. he just left to walk the dog and she was on the floor; probably crawled from where she was sitting to the hallway. history of severe left hip DJD and she just had a local steroid injection by our IR physician findings and the EGD are revealed hematuria white count to 24,000 and high CK but normal troponin. CAT scan brain no acute findings; limb x-rays no acute fracture. Patient on xarelto for recent DVT unprovoked although she is sedentary. On exam: Vital Signs Temp 97.6 F 11/19/17 04:15 Pulse 73 11/19/17 04:15 Resp 20 11/19/17 04:15 BP 128/63 11/19/17 04:15 Pulse Ox 92 L 11/19/17 04:15 Intake & Output 11/18/17 11/18/17 11/19/17 11:59 23:59 11:59 Intake Total 366 Balance 366 Weight 93 lb 90 lb 3.2 oz Intake: IV 126 Normal Saline - 1,000 ml 126 @ 42 mls/hr IV ASDIR [facility] Rx#:[id number] Oral 240 Other: Voiding Method Incontinent Height 4 ft 11 in 4 ft 11 in Body Mass Index (BMI) 18.8 18.2 Weight Measurement Method Built in Bedscale alert but cannot recall many of the events causing her admission. Chest decreased breath sounds Heart tachycardia. Abdomen distended with increased bowel sounds but soft and nontender. Extremities no pedal edema. Denies suprapubic tenderness. Abnormal Lab Results 11/18/17 11/18/17 11/18/17 14:38 14:38 14:38 WBC 26.6 H D RBC Hgb Hct MPV 7.1 L Neutrophils % Lymphocytes % Lymphocytes % (Manual) 7.0 L PT with INR 23.10 H INR 2.04 H D Sodium 132 L Chloride 91 L Creatinine 0.5 L Random Glucose 138 H AST Creatine Kinase Total Protein Albumin Urine Protein Urine Ketones Urine Blood Ur Leukocyte Esterase 11/19/17 11/19/17 11/19/17 05:30 07:47 08:50 WBC 12.4 H D RBC 3.56 L Hgb 10.1 L Hct 30.2 L MPV 7.0 L Neutrophils % 83.7 H D Lymphocytes % 6.9 L D Lymphocytes % (Manual) PT with INR INR Sodium 126 L Chloride 86 L Creatinine 0.3 L Random Glucose AST 42 H Creatine Kinase 317 H Total Protein 6.2 L Albumin 3.1 L Urine Protein 2+ H Urine Ketones Trace H Urine Blood 3+ H Ur Leukocyte Esterase 1+ H 11/19/17 08:50 WBC RBC Hgb Hct MPV Neutrophils % Lymphocytes % Lymphocytes % (Manual) PT with INR 14.90 H INR 1.32 H D Sodium Chloride Creatinine Random Glucose AST Creatine Kinase Total Protein Albumin Urine Protein Urine Ketones Urine Blood Ur Leukocyte Esterase Abnormal Lab Results 11/18/17 11/18/17 11/18/17 14:38 14:38 14:38 WBC 26.6 H D RBC Hgb Hct MPV 7.1 L Neutrophils % Lymphocytes % Lymphocytes % (Manual) 7.0 L PT with INR 23.10 H INR 2.04 H D Sodium 132 L Chloride 91 L Creatinine 0.5 L Random Glucose 138 H AST Creatine Kinase Total Protein Albumin Urine Protein Urine Ketones Urine Blood Ur Leukocyte Esterase 11/19/17 11/19/17 11/19/17 05:30 07:47 08:50 WBC 12.4 H D RBC 3.56 L Hgb 10.1 L Hct 30.2 L MPV 7.0 L Neutrophils % 83.7 H D Lymphocytes % 6.9 L D Lymphocytes % (Manual) PT with INR INR Sodium 126 L Chloride 86 L Creatinine 0.3 L Random Glucose AST 42 H Creatine Kinase 317 H Total Protein 6.2 L Albumin 3.1 L Urine Protein 2+ H Urine Ketones Trace H Urine Blood 3+ H Ur Leukocyte Esterase 1+ H 11/19/17 08:50 WBC RBC Hgb Hct MPV Neutrophils % Lymphocytes % Lymphocytes % (Manual) PT with INR 14.90 H INR 1.32 H D Sodium Chloride Creatinine Random Glucose AST Creatine Kinase Total Protein Albumin Urine Protein Urine Ketones Urine Blood Ur Leukocyte Esterase impression: Mechanical fall. Severe DJD left hip. Right hip replacement. Mild dementia. History of hypertension. Hematuria. Hyponatremia. Leukocytosis possible UTI. Plan: Followup lab We'll start antibiotics now that the cultures have been obtained. Renal consult regarding hyponatremia and hematuria. Bladder and kidney sonogram
[2017-11-19 09:25] LABS: INR 1.32 (0.82-1.09); PROTHROMBIN TIME (PATIENT) 14.9 SEC (9.98-11.88)
[2017-11-19 09:27] LABS: ACTIVATED PTT 31.5 SECONDS (26.9-34.4)
[2017-11-19] MEDS ORDERED: PNEUMOC 13-VAL CONJ-DIP CRM/PF 0.5 ML DISP.SYRIN IM ONE (11:00)
[2017-11-19 12:00] LABS: ANION GAP 12 (8-16); BLOOD UREA NITROGEN 13 mg/dL (7-18); CALCIUM 8.7 mg/dL (8.5-10.1); CHLORIDE 85 mmol/L (98-107); CO2 29 mmol/L (21-32); CREATININE 0.4 mg/dL (0.55-1.02); GLUCOSE,RANDOM 104 mg/dL (74-106); POTASSIUM 3.5 mmol/L (3.5-5.1); SODIUM 126 mmol/L (136-145)
--- NOTE | 2017-11-19 12:07 | CONSULT ---
Consult - text type - Consultation Consultation Note: Renal consult for Hyponatremia This is a 87 year old woman with PMhx of Dementia, DVT on xarelto, Hypertension who presented s/p fall at home. Pt remembers falling, denies any LOC. No seizure activity noted. Pt is without complaints. Serum na went from 132 to 126 from ED to the 2nd hospital day. Pt denies any confusion, lethargy, weakness, N/ V, seizures. Denies any Hx of hyponatremia. Pt is on HCTZ at home. No sob, chest pain, fever, chills. Denies any excessive water intake. ON IV normal saline. PMhx: as above Allegies: NKDA Family Hx: NC Social Hx: No T/A/D ROS: as per HPI, all other pertinent ros negative. Home Medications Medication Instructions Recorded Telmisartan [Micardis] 20 mg PO DAILY 09/14/15 Rivaroxaban [Xarelto -] 20 mg PO BID #28 tablet 06/20/17 Amlodipine Besylate [Norvasc -] 11/19/17 Folic Acid 1 mg PO DAILY 11/19/17 Vital Signs Temperature 97.6 F 11/19/17 04:15 Pulse Rate 73 11/19/17 04:15 Respiratory Rate 20 11/19/17 04:15 Blood Pressure 128/63 11/19/17 04:15 O2 Sat by Pulse Oximetry (%) 92 L 11/19/17 04:15 Intake & Output 11/16/17 11/17/17 11/18/17 11/19/17 23:59 23:59 23:59 23:59 Intake Total 366 Balance 366 Weight 42.184 kg 40.914 kg NAD, awake and alert neck supple, no JVD, MMM RRR, no M/R CTA soft NT/ND no bladder distension NO LE edema CBC, BMP 11/19/17 08:50 11/19/17 11:05 Current Medications Acetaminophen (Tylenol -) 650 mg PO Q6H PRN PRN Reason: FEVER Last Admin: 11/19/17 00:34 Dose: 650 mg CEFTRIAXONE 1 G/50 ML PREMIX (Ceftriaxone 1 Gm-D5w Bag) 50 mls @ 100 mls/hr IVPB DAILY ELY Morphine Sulfate (Morphine Sulfate) 2 mg IVPUSH Q6H PRN PRN Reason: PAIN LEVEL 6-10 87 year old woman with PMhx of Dementia, DVT on xarelto, Hypertension who presented s/p fall at home. Pt remembers falling, denies any LOC. No seizure activity noted. Pt is without complaints. #Acute Hyponatremia repeat Na drawn later this am was 126. Urine studies pending will D/C IVF as pt with worsening Na on IVF suspect possible excess ADH release free water restriction of 1L for now no pathology noted on CT of the head or Chest x-ray Trend Na Q12h once off IVF no acute indication for 3% saline #Fall continue supportive care as per primary fall precautions #Hematuria check US of kidney and bladder f/u urine culture continue empiric Abx as per primary #Anemia Trend CBC no indication for transfusion at this time Thank you Will follow Twin Darling DO
[2017-11-19] MEDS: CEFTRIAXONE 1 G/50 ML PREMIX 50 ML IVPB SCH (13:21)
[2017-11-19 18:27] LABS: ANION GAP 14 (8-16); BLOOD UREA NITROGEN 12 mg/dL (7-18); CALCIUM 8.2 mg/dL (8.5-10.1); CHLORIDE 84 mmol/L (98-107); CO2 25 mmol/L (21-32); CREATININE 0.3 mg/dL (0.55-1.02); GLUCOSE,RANDOM 120 mg/dL (74-106); POTASSIUM 3.6 mmol/L (3.5-5.1)
[2017-11-19 18:35] LABS: URINE APPEARANCE TURBID; URINE BILIRUBIN NEGATIVE (NEGATIVE); URINE BLOOD 3+ (NEGATIVE); URINE COLOR YELLOW; URINE GLUCOSE (UA) NEGATIVE (NEGATIVE); URINE KETONE TRACE (NEGATIVE); URINE NITRITE NEGATIVE (NEGATIVE); URINE UROBILINOGEN NEGATIVE mg/dL (0.2-1.0)
[2017-11-19 18:44] LABS: SODIUM 123 mmol/L (136-145)
[2017-11-19 18:54] LABS: URINE LEUK ESTERASE 3+ (NEGATIVE); URINE PROTEIN 2+ (NEGATIVE)
[2017-11-19 19:16] LABS: EPI CELLS RARE /HPF (FEW); URINE CRYSTALS FEW /hpf (NONE SEEN); URINE HYALINE CAST 16 /lpf
[2017-11-19 19:17] LABS: URINE MUCUS MANY; YEAST FEW
[2017-11-19] MEDS: SODIUM CHLORIDE 1 GM TABLET PO SCH ×2 (20:45→20:46)
[2017-11-20] MEDS: ACETAMINOPHEN 325 MG TABLET (FP) PO PRN ×2 (04:14→16:17)
[2017-11-20 07:35] LABS: ALBUMIN 3.1 g/dl (3.4-5.0); ANION GAP 10 (8-16); BLOOD UREA NITROGEN 10 mg/dL (7-18); CALCIUM 7.7 mg/dL (8.5-10.1); CHLORIDE 86 mmol/L (98-107); CO2 28 mmol/L (21-32); GLUCOSE,RANDOM 108 mg/dL (74-106); POTASSIUM 3.7 mmol/L (3.5-5.1)
[2017-11-20 07:39] LABS: ALK PHOS 86 U/L (45-117); BILIRUBIN,TOTAL 0.6 mg/dL (0.2-1.0); CREATININE 0.4 mg/dL (0.55-1.02); SGOT/AST 32 U/L (15-37); SGPT/ALT 27 U/L (12-78); TOT PROT 6.3 g/dl (6.4-8.2)
[2017-11-20 08:00] LABS: BASO % 0.1 % (0-2.0); HEMATOCRIT 31.8 % (32.4-45.2); HEMOGLOBIN 10.5 GM/dL (10.7-15.3); LYMPH % 4.7 % (8-40); MCH 27.8 pg (25.7-33.7); MCHC 32.9 g/dl (32.0-36.0); MEAN CELL VOLUME 84.7 fl (80-96); MEAN PLT VOLUME 7.5 fl (7.5-11.1); MONO % 9.8 % (3.8-10.2); NEUT % 85.4 % (42.8-82.8); PLATELET COUNT 294 K/MM3 (134-434); RBC 3.76 M/mm3 (3.60-5.2); RDW 14.8 % (11.6-15.6); WHITE BLOOD COUNT 12.5 K/mm3 (4.0-10.0)
--- NOTE | 2017-11-20 08:11 | PN ---
Progress Note (short form) - Note Progress Note: Renal follow up for hyponatremia Pt seen and examined at the bedside awake and alert no acute complaints no confuison, lethargy, N/V, seizures tolerating oral diet Vital Signs Temperature 98.7 F 11/20/17 06:10 Pulse Rate 98 H 11/20/17 06:10 Respiratory Rate 20 11/20/17 06:10 Blood Pressure 138/72 11/20/17 06:10 O2 Sat by Pulse Oximetry (%) 92 L 11/19/17 21:00 Intake & Output 11/17/17 11/18/17 11/19/17 11/20/17 23:59 23:59 23:59 23:59 Intake Total 732 100 Balance 732 100 Weight 42.184 kg 40.914 kg NAD, awake and alert RRR, no M/R CTA soft NT/ND no bladder distension NO LE edema todays bmp pending Current Medications Acetaminophen (Tylenol -) 650 mg PO Q6H PRN PRN Reason: FEVER Last Admin: 11/20/17 04:14 Dose: 650 mg CEFTRIAXONE 1 G/50 ML PREMIX (Ceftriaxone 1 Gm-D5w Bag) 50 mls @ 100 mls/hr IVPB DAILY ELY Last Admin: 11/19/17 13:21 Dose: 100 mls/hr Morphine Sulfate (Morphine Sulfate) 2 mg IVPUSH Q6H PRN PRN Reason: PAIN LEVEL 6-10 Sodium Chloride (Sodium Chloride Tablet -) 1 gm PO BID ELY Last Admin: 11/19/17 20:46 Dose: Not Given 87 year old woman with PMhx of Dementia, DVT on xarelto, Hypertension who presented s/p fall at home. Pt remembers falling, denies any LOC. No seizure activity noted. Pt is without complaints. #Acute Hyponatremia with excess ADH release serum na downtrended to 123 yesterday holding HCTZ continue fluid restriction and salt tabs todays bmp pending no indication for 3% saline #Fall continue supportive care as per primary fall precautions #Hematuria US showed non-obstructing stones no bladder masses or lesions #Anemia Trend CBC no indication for transfusion at this time Twin Darling DO
[2017-11-20 08:47] LABS: SODIUM 124 mmol/L (136-145)
[2017-11-20] MEDS: CEFTRIAXONE 1 G/50 ML PREMIX 50 ML IVPB SCH (09:11)
[2017-11-20] MEDS: SODIUM CHLORIDE 1 GM TABLET PO SCH ×2 (09:11→22:12)
--- NOTE | 2017-11-20 15:37 | CON.GU ---
Consult Consult Specialty:: Referred by:: serenity Reason for Consultation:: hematuria. UTI, kidney stone - History of Present Illness Chief Complaint: hematuria, UTI, kidney stone History of Present Illness: 87 year old female with gross hematuria and a UTI. US reveals a large but non onstructing kidney stone. leukocytosis is improving., Urine culture is positive. - History Source History Provided By: Family Member, Medical Record - Past Medical History Renal/: Yes: Hematuria, UTI - Alcohol/Substance Use Hx Alcohol Use: No - Smoking History Smoking history: Never smoked Have you smoked in the past 12 months: No Aproximately how many cigarettes per day: 0 Home Medications - Allergies Allergies/Adverse Reactions: Allergies Allergy/AdvReac Type Severity Reaction Status Date / Time No Known Allergies Allergy Verified 11/18/17 12:33 - Home Medications Home Medications: Ambulatory Orders Telmisartan [Micardis] 20 mg PO DAILY 09/14/15 Rivaroxaban [Xarelto -] 20 mg PO BID #28 tablet 06/20/17 Amlodipine Besylate [Norvasc -] 11/19/17 Folic Acid 1 mg PO DAILY 11/19/17 Review of Systems - Review of Systems Genitourinary: reports: Hematuria Physical Exam- Vital Signs: Vital Signs Temperature 98.1 F 11/20/17 14:58 Pulse Rate 106 H 11/20/17 14:58 Respiratory Rate 18 11/20/17 14:58 Blood Pressure 145/60 11/20/17 14:58 O2 Sat by Pulse Oximetry (%) 92 L 11/19/17 21:00 Renal/: Yes: Hematuria, Incontinence. No: CVA Tenderness - Left, CVA Tenderness - Right, Lin Present Labs: CBC, BMP 11/20/17 06:00 11/20/17 06:00 Imaging - Results Ultrasound: Report Reviewed Problem List - Problems (1) Calculus of kidney Assessment/Plan: non obstructing stone on US. Will need CT to better define the stone. Code(s): N20.0 - CALCULUS OF KIDNEY (2) Hematuria due to acute cystitis Assessment/Plan: UTI. continue antibiotics Code(s): N30.01 - ACUTE CYSTITIS WITH HEMATURIA
[2017-11-20] MEDS ORDERED: PT OWN MED DRAWER 7, Y5N ONE (17:19)
--- NOTE | 2017-11-20 17:42 | PN ---
Progress Note (short form) - Note Progress Note: patient seen and examined today. Alert but somewhat forgetful. Wants to go home. Hematuria was investigated via sonogram and it was revealed that she had a possible calculus. She was also put on antibiotics and indeed her urine culture preliminary is positive. We are waiting for the sensitivities. She is on ceftriaxone. Urology consult was called and CAT scan ordered. Patient still has persistent hyponatremia and is followed by renal physician. Possible SIADH. On exam: Vital Signs Temp 98.1 F 11/20/17 14:58 Pulse 106 H 11/20/17 14:58 Resp 18 11/20/17 14:58 BP 145/60 11/20/17 14:58 Pulse Ox 92 L 11/19/17 21:00 Intake & Output 11/19/17 11/20/17 11/20/17 23:59 11:59 23:59 Intake Total 366 400 400 Balance 366 400 400 Intake: IV 126 Normal Saline - 1,000 ml 126 @ 42 mls/hr IV ASDIR ELY Rx#:[id number] IVPB 50 Oral 240 400 350 Other: Voiding Method Toilet Incontinent Bowel Movement No Alert Slightly pale. Chest decreased breath sounds. Heart regular Extremities no significant edema. Abdomen nontender but slightly distended Abnormal Lab Results 11/19/17 11/19/17 11/19/17 08:50 16:00 17:15 WBC Hgb Hct Neutrophils % Lymphocytes % Sodium 123 L* Chloride 84 L Creatinine 0.3 L Random Glucose 120 H Serum Osmolality 264 L Calcium 8.2 L Total Protein Albumin Urine Protein 2+ H Urine Ketones Trace H Urine Blood 3+ H Ur Leukocyte Esterase 3+ H D 11/20/17 11/20/17 06:00 06:00 WBC 12.5 H Hgb 10.5 L Hct 31.8 L Neutrophils % 85.4 H Lymphocytes % 4.7 L D Sodium 124 L* Chloride 86 L Creatinine 0.4 L Random Glucose 108 H Serum Osmolality Calcium 7.7 L Total Protein 6.3 L Albumin 3.1 L Urine Protein Urine Ketones Urine Blood Ur Leukocyte Esterase impression: Fall at home. No obvious fractures noted on testing. SIADH and hyponatremia. Hematuria. Renal calculus. Mild cognitive impairment. Hypertension. Plan: Amlodipine 2.5 mg a day. Will hold off on micardis Rx CAT scan of abdomen pelvis. Physical therapy. Followup sodium and other lab tests
[2017-11-21] MEDS: SODIUM CHLORIDE 1 GM TABLET PO SCH ×3 (05:59→21:45)
[2017-11-21 08:27] LABS: CHLORIDE 88 mmol/L (98-107); POTASSIUM 3.3 mmol/L (3.5-5.1); SODIUM 129 mmol/L (136-145)
[2017-11-21 08:36] LABS: ANION GAP 14 (8-16); BLOOD UREA NITROGEN 9 mg/dL (7-18); CALCIUM 8.5 mg/dL (8.5-10.1); CO2 27 mmol/L (21-32); CREATININE 0.3 mg/dL (0.55-1.02); GLUCOSE,RANDOM 108 mg/dL (74-106)
[2017-11-21] MEDS ORDERED: POTASSIUM CHLORIDE TABS 20 MEQ TABLET.ER (FP) PO ONE ×2 (09:21→12:00)
[2017-11-21] MEDS: amLODIPine BESYLATE 2.5 MG TABLET (FP) PO SCH (09:28)
[2017-11-21] MEDS: CEFTRIAXONE 1 G/50 ML PREMIX 50 ML IVPB SCH (09:28)
[2017-11-21 10:22] LABS: HEMATOCRIT 34.3 % (32.4-45.2); HEMOGLOBIN 11.3 GM/dL (10.7-15.3); MCH 28.3 pg (25.7-33.7); MEAN PLT VOLUME 7.5 fl (7.5-11.1); PLATELET COUNT 295 K/MM3 (134-434); RBC 3.99 M/mm3 (3.60-5.2); RDW 14.8 % (11.6-15.6)
--- NOTE | 2017-11-21 10:48 | PN ---
Progress Note (short form) - Note Progress Note: Renal follow up for hyponatremia Pt seen and examined at the bedside awake and alert no complaints no confusion, lethargy, weakness, seizures tolerating oral diet Vital Signs Temperature 98.6 F 11/21/17 09:23 Pulse Rate 112 H 11/21/17 09:23 Respiratory Rate 20 11/21/17 09:23 Blood Pressure 156/81 11/21/17 09:23 O2 Sat by Pulse Oximetry (%) 96 11/20/17 21:00 Intake & Output 11/18/17 11/19/17 11/20/17 11/21/17 23:59 23:59 23:59 23:59 Intake Total 732 800 Balance 732 800 Weight 42.184 kg 40.914 kg NAD, awake and alert RRR, no M/R CTA soft NT/ND no bladder distension NO LE edema CBC, BMP 11/21/17 10:00 11/21/17 06:30 Current Medications Acetaminophen (Tylenol -) 650 mg PO Q6H PRN PRN Reason: FEVER Last Admin: 11/20/17 16:17 Dose: 650 mg Amlodipine Besylate (Norvasc -) 2.5 mg PO DAILY [facility] Last Admin: 11/21/17 09:28 Dose: 2.5 mg CEFTRIAXONE 1 G/50 ML PREMIX (Ceftriaxone 1 Gm-D5w Bag) 50 mls @ 100 mls/hr IVPB DAILY [facility] Last Admin: 11/21/17 09:28 Dose: 100 mls/hr Sodium Chloride (Sodium Chloride Tablet -) 1 gm PO TID [facility] Last Admin: 11/21/17 05:59 Dose: 1 gm 87 year old woman with PMhx of Dementia, DVT on xarelto, Hypertension who presented s/p fall at home. Pt remembers falling, denies any LOC. No seizure activity noted. Pt is without complaints. #Acute Hyponatremia with excess ADH release/SIADH continue fluid restriction and salt tabs as serum Na is improving no indication for 3% saline pt will likely need to be discharged on salt tabs and titration as needed #Fall continue supportive care as per primary fall precautions #Hematuria US showed non-obstructing stones no bladder masses or lesions on IV abx for UTI Twin Darling DO
--- NOTE | 2017-11-21 11:47 | PN ---
Progress Note, Physician History of Present Illness: Patient feeling OK, no flank or groin pain. Does c/o constripation. - Current Medication List Current Medications: Active Medications Acetaminophen (Tylenol -) 650 mg PO Q6H PRN PRN Reason: FEVER Last Admin: 11/20/17 16:17 Dose: 650 mg Amlodipine Besylate (Norvasc -) 2.5 mg PO DAILY [facility] Last Admin: 11/21/17 09:28 Dose: 2.5 mg Docusate Sodium (Colace -) 100 mg PO BID [facility] CEFTRIAXONE 1 G/50 ML PREMIX (Ceftriaxone 1 Gm-D5w Bag) 50 mls @ 100 mls/hr IVPB DAILY [facility] Last Admin: 11/21/17 09:28 Dose: 100 mls/hr Senna (Senna -) 2 tab PO HS [facility] Sodium Chloride (Sodium Chloride Tablet -) 1 gm PO TID [facility] Last Admin: 11/21/17 05:59 Dose: 1 gm - Objective Vital Signs: Vital Signs Temperature 98.6 F 11/21/17 09:23 Pulse Rate 112 H 11/21/17 09:23 Respiratory Rate 20 11/21/17 09:23 Blood Pressure 156/81 11/21/17 09:23 O2 Sat by Pulse Oximetry (%) 96 11/20/17 21:00 Constitutional: Yes: No Distress, Calm HENT: Yes: Atraumatic, Normocephalic Neck: Yes: Supple, Trachea Midline Cardiovascular: Yes: Regular Rate and Rhythm, S1, S2. No: Murmur Respiratory: Yes: Regular, CTA Bilaterally. No: Rales, Rhonchi, Wheezes Gastrointestinal: Yes: Normal Bowel Sounds, Soft. No: Distention, Tenderness Edema: No Neurological: Yes: Alert, Oriented Labs: CBC, BMP 11/21/17 10:00 11/21/17 06:30 INR, PTT INR 1.32 (0.82-1.09) H D 11/19/17 08:50 Assessment/Plan Current Active Problems Calculus of kidney (Acute) Fall (Acute) Hematuria due to acute cystitis (Acute) Leukocytosis (Acute) UTI -cont abx for UTI -start stool softener/ mild laxative for constipation
[2017-11-21] MEDS: DOCUSATE SODIUM 100 MG CAPSULE (FP) PO SCH ×2 (12:19→21:17)
[2017-11-21] MEDS ORDERED: PT OWN MED DRAWER 7, Y5N ONE (14:28)
[2017-11-21] MEDS: ACETAMINOPHEN 325 MG TABLET (FP) PO PRN (20:24)
[2017-11-21] MEDS: SENNOSIDES 8.6MG TABLET (FP) PO SCH (21:17)
[2017-11-22] MEDS ORDERED: PT OWN MED DRAWER 7, Y5N ONE ×3 (05:36→10:35)
[2017-11-22] MEDS: SODIUM CHLORIDE 1 GM TABLET PO SCH ×3 (06:01→21:33)
[2017-11-22] MEDS ORDERED: INSULIN (NOVOLOG) ASPART 100 UNITS/ML 10ML VIAL ONE (07:14)
[2017-11-22 07:15] LABS: ANION GAP 6 (8-16); BLOOD UREA NITROGEN 12 mg/dL (7-18); CALCIUM 7.8 mg/dL (8.5-10.1); CHLORIDE 95 mmol/L (98-107); CO2 31 mmol/L (21-32); CREATININE 0.3 mg/dL (0.55-1.02); GLUCOSE,RANDOM 104 mg/dL (74-106); POTASSIUM 3.8 mmol/L (3.5-5.1); SODIUM 132 mmol/L (136-145)
--- NOTE | 2017-11-22 09:02 | PN ---
Progress Note (short form) - Note Progress Note: Renal follow up for hyponatremia Pt seen and examined at the bedside awake and alert no acute complaints Vital Signs Temperature 98.1 F 11/22/17 06:00 Pulse Rate 103 H 11/22/17 06:00 Respiratory Rate 18 11/22/17 06:00 Blood Pressure 148/73 11/22/17 06:00 O2 Sat by Pulse Oximetry (%) 94 L 11/21/17 21:00 NAD, awake and alert RRR, no M/R CTA soft NT/ND no bladder distension NO LE edema CBC, BMP 11/21/17 10:00 11/22/17 06:00 Current Medications Acetaminophen (Tylenol -) 650 mg PO Q6H PRN PRN Reason: FEVER Last Admin: 11/21/17 20:24 Dose: 650 mg Amlodipine Besylate (Norvasc -) 2.5 mg PO DAILY [facility] Last Admin: 11/21/17 09:28 Dose: 2.5 mg Docusate Sodium (Colace -) 100 mg PO BID [facility] Last Admin: 11/21/17 21:17 Dose: 100 mg CEFTRIAXONE 1 G/50 ML PREMIX (Ceftriaxone 1 Gm-D5w Bag) 50 mls @ 100 mls/hr IVPB DAILY [facility] Last Admin: 11/21/17 09:28 Dose: 100 mls/hr Senna (Senna -) 2 tab PO HS [facility] Last Admin: 11/21/17 21:17 Dose: 2 tab Sodium Chloride (Sodium Chloride Tablet -) 1 gm PO BID [facility] 87 year old woman with PMhx of Dementia, DVT on xarelto, Hypertension who presented s/p fall at home. Pt remembers falling, denies any LOC. No seizure activity noted. Pt is without complaints. #Acute Hyponatremia with excess ADH release/SIADH serum na is improved and stable decrease salt tabs to BID continue water restriction ok for discharge with outpatient follow up #Fall continue supportive care as per primary fall precautions #Hematuria US showed non-obstructing stones no bladder masses or lesions on IV abx for UTI Twin Darling DO
[2017-11-22] MEDS: CEFTRIAXONE 1 G/50 ML PREMIX 50 ML IVPB SCH (09:38)
[2017-11-22] MEDS: amLODIPine BESYLATE 2.5 MG TABLET (FP) PO SCH (09:38)
[2017-11-22] MEDS: IBUPROFEN 400 MG TABLET (FP) PO PRN ×2 (09:38→18:19)
[2017-11-22] MEDS: DOCUSATE SODIUM 100 MG CAPSULE (FP) PO SCH ×2 (09:38→21:33)
--- NOTE | 2017-11-22 11:06 | PN ---
Progress Note, Physician History of Present Illness: Patient with some pain in right elbow and shoulder (due to her fall priro to admission). Otherwise, urine culture is coming back as E. Coli camp-sensitive. - Current Medication List Current Medications: Active Medications Acetaminophen (Tylenol -) 650 mg PO Q6H PRN PRN Reason: FEVER Last Admin: 11/21/17 20:24 Dose: 650 mg Amlodipine Besylate (Norvasc -) 2.5 mg PO DAILY [facility] Last Admin: 11/22/17 09:38 Dose: 2.5 mg Docusate Sodium (Colace -) 100 mg PO BID [facility] Last Admin: 11/22/17 09:38 Dose: 100 mg CEFTRIAXONE 1 G/50 ML PREMIX (Ceftriaxone 1 Gm-D5w Bag) 50 mls @ 100 mls/hr IVPB DAILY [facility] Last Admin: 11/22/17 09:38 Dose: 100 mls/hr Ibuprofen (Motrin -) 400 mg PO Q6H PRN PRN Reason: FEVER Last Admin: 11/22/17 09:38 Dose: 400 mg Senna (Senna -) 2 tab PO HS [facility] Last Admin: 11/21/17 21:17 Dose: 2 tab Sodium Chloride (Sodium Chloride Tablet -) 1 gm PO BID [facility] Last Admin: 11/22/17 09:38 Dose: 1 gm - Objective Vital Signs: Vital Signs Temperature 99.2 F 11/22/17 09:33 Pulse Rate 98 H 11/22/17 09:33 Respiratory Rate 20 11/22/17 09:33 Blood Pressure 128/46 11/22/17 09:33 O2 Sat by Pulse Oximetry (%) 94 L 11/21/17 21:00 Constitutional: Yes: No Distress, Calm Eyes: Yes: Conjunctiva Clear, EOM Intact Neck: Yes: Supple, Trachea Midline Cardiovascular: Yes: Regular Rate and Rhythm, S1, S2. No: Murmur Respiratory: Yes: Regular, CTA Bilaterally. No: Rales, Rhonchi, Wheezes Musculoskeletal: Yes: Other (right elbow without pain to palpation, mild pain to active movement) Edema: No Labs: CBC, BMP 11/21/17 10:00 11/22/17 06:00 INR, PTT INR 1.32 (0.82-1.09) H D 11/19/17 08:50 Assessment/Plan Current Active Problems Calculus of kidney (Acute) Fall (Acute) Hematuria due to acute cystitis (Acute) Leukocytosis (Acute) UTI -cont IV abx for UTI -d/c planning for tomorrow on PO abx if remains stable
[2017-11-22] MEDS: SENNOSIDES 8.6MG TABLET (FP) PO SCH (21:33)
[2017-11-23 07:56] LABS: ANION GAP 8 (8-16); BLOOD UREA NITROGEN 14 mg/dL (7-18); CALCIUM 7.5 mg/dL (8.5-10.1); CHLORIDE 98 mmol/L (98-107); CO2 30 mmol/L (21-32); CREATININE 0.3 mg/dL (0.55-1.02); GLUCOSE,RANDOM 81 mg/dL (74-106); SODIUM 136 mmol/L (136-145)
[2017-11-23] MEDS: IBUPROFEN 400 MG TABLET (FP) PO PRN ×2 (08:35→17:34)
[2017-11-23] MEDS ORDERED: PT OWN MED DRAWER 7, Y5N ONE (10:02)
--- NOTE | 2017-11-23 10:04 | PN ---
Progress Note (short form) - Note Progress Note: Patient seen and examined this morning. laying in bed but alert. Has had pain in her right elbow and does have a history of fall at home. x-ray will be done. Sodium much improved to 136, and blood pressure is now going up. We do not have her normal ARB: Telmesartan on the hospital formulary so I will prescribe generic Diovan 80 mg until she resumes home medication. marked hematuria with urinary tract infection. Urologist for patient and ordered a CAT scan showing calculus but the amount of red cells is an ongoing worry. I am still holding her anticoagulant Xarelto which was given for DVT. we'll repeat urine analysis today now that she's been on antibiotics and the infection is sensitive to ceftriaxone. Willing to start therapy today. We'll start laxative for constipation as noted on the CAT scan. on exam: Vital Signs Temp 98.1 F 11/23/17 09:15 Pulse 88 11/23/17 09:15 Resp 19 11/23/17 09:15 BP 152/82 11/23/17 09:15 Pulse Ox 95 11/22/17 21:00 Intake & Output 11/22/17 11/23/17 11/23/17 23:59 11:59 23:59 Intake Total 150 Balance 150 Intake: IVPB 50 Oral 100 Other: Voiding Method Bedpan # Unmeasured Voids Void 1 1 Bowel Movement No No alert Not pale. Chest a few rhonchi and decreased breath sounds at the bases Heart regular Abdomen slightly distended but nontender. Extremities no obvious pedal edema right elbow shows no obvious erythema or ecchymosis. Abnormal Lab Results 11/23/17 06:30 Creatinine 0.3 L Calcium 7.5 L impression: Fall at home. Acute urinary tract infection. Mild cognitive impairment. Hematuria. Renal calculus. Pleural effusions. Hypertension. 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 Hyponatremia corrected. Constipation. Plan: x-ray right elbow Add ARB for blood pressure Followup urine analysis. Physical therapy. Hopefully tomorrow home with physical therapy and visiting nurse DC salt tabs Continue to hold Xarelto due to hematuria. MiraLax
[2017-11-23] MEDS: SODIUM CHLORIDE 1 GM TABLET PO SCH (10:12)
[2017-11-23] MEDS: CEFTRIAXONE 1 G/50 ML PREMIX 50 ML IVPB SCH (10:12)
[2017-11-23] MEDS: DOCUSATE SODIUM 100 MG CAPSULE (FP) PO SCH ×2 (10:12→21:37)
[2017-11-23] MEDS: amLODIPine BESYLATE 2.5 MG TABLET (FP) PO SCH (10:12)
[2017-11-23] MEDS: POLYETHYLENE GLYCOL 3350 119 GM BTL PO SCH ×2 (10:24→21:38)
[2017-11-23] MEDS: ACETAMINOPHEN 325 MG TABLET (FP) PO PRN (12:47)
[2017-11-23] MEDS: VALSARTAN 80 MG TABLET (UD) PO SCH (14:26)
--- NOTE | 2017-11-23 14:37 | PN ---
Progress Note (short form) - Note Progress Note: Renal follow up for hyponatremia Pt seen and examined at the bedside awake and alert no acute complaints Vital Signs Temperature 98.1 F 11/23/17 09:15 Pulse Rate 88 11/23/17 09:15 Respiratory Rate 19 11/23/17 09:15 Blood Pressure 152/82 11/23/17 09:15 O2 Sat by Pulse Oximetry (%) 95 11/22/17 21:00 Intake & Output 11/20/17 11/21/17 11/22/17 11/23/17 23:59 23:59 23:59 23:59 Intake Total 800 250 270 Balance 800 250 270 NAD, awake and alert RRR, no M/R CTA soft NT/ND no bladder distension NO LE edema CBC, BMP 11/21/17 10:00 11/23/17 06:30 Current Medications Acetaminophen (Tylenol -) 650 mg PO Q6H PRN PRN Reason: FEVER Last Admin: 11/23/17 12:47 Dose: 650 mg Amlodipine Besylate (Norvasc -) 2.5 mg PO DAILY [facility] Last Admin: 11/23/17 10:12 Dose: 2.5 mg Docusate Sodium (Colace -) 100 mg PO BID [facility] Last Admin: 11/23/17 10:12 Dose: 100 mg CEFTRIAXONE 1 G/50 ML PREMIX (Ceftriaxone 1 Gm-D5w Bag) 50 mls @ 100 mls/hr IVPB DAILY [facility] Last Admin: 11/23/17 10:12 Dose: 100 mls/hr Ibuprofen (Motrin -) 400 mg PO Q6H PRN PRN Reason: FEVER Last Admin: 11/23/17 08:35 Dose: 400 mg Polyethylene Glycol (Miralax (For Daily Use) -) 17 gm PO BID [facility] Last Admin: 11/23/17 10:24 Dose: 17 grams Senna (Senna -) 2 tab PO HS [facility] Last Admin: 11/22/17 21:33 Dose: 2 tab Valsartan (Diovan -) 80 mg PO DAILY [facility] Last Admin: 11/23/17 14:26 Dose: 80 mg 87 year old woman with PMhx of Dementia, DVT on xarelto, Hypertension who presented s/p fall at home. Pt remembers falling, denies any LOC. No seizure activity noted. Pt is without complaints. #Acute Hyponatremia with excess ADH release/SIADH serum Na is now improved to normal continue salt tabs for now trend Na daily continue fluid restriction for the time being #Fall continue supportive care as per primary fall precautions #Hematuria US showed non-obstructing stones no bladder masses or lesions on IV abx for UTI #Hypertension started on Diovan today goal BP < 140/90 Twin Darling DO
[2017-11-23] MEDS: SENNOSIDES 8.6MG TABLET (FP) PO SCH (21:37)
[2017-11-23 22:14] LABS: URINE APPEARANCE SLCLOUDY; URINE BILIRUBIN NEGATIVE (NEGATIVE); URINE BLOOD NEGATIVE (NEGATIVE); URINE COLOR YELLOW; URINE GLUCOSE (UA) NEGATIVE (NEGATIVE); URINE KETONE TRACE (NEGATIVE); URINE LEUK ESTERASE TRACE (NEGATIVE); URINE NITRITE NEGATIVE (NEGATIVE); URINE PROTEIN NEGATIVE (NEGATIVE); URINE UROBILINOGEN NEGATIVE mg/dL (0.2-1.0)
[2017-11-23 22:17] LABS: EPI CELLS FEW /HPF (FEW); URINE MUCUS RARE
[2017-11-24] MEDS: amLODIPine BESYLATE 2.5 MG TABLET (FP) PO SCH (10:16)
[2017-11-24] MEDS: DOCUSATE SODIUM 100 MG CAPSULE (FP) PO SCH ×2 (10:16→21:22)
[2017-11-24] MEDS: VALSARTAN 80 MG TABLET (UD) PO SCH (10:16)
[2017-11-24] MEDS: CEFTRIAXONE 1 G/50 ML PREMIX 50 ML IVPB SCH (10:17)
[2017-11-24] MEDS: POLYETHYLENE GLYCOL 3350 119 GM BTL PO SCH ×2 (10:17→21:22)
[2017-11-24] MEDS: IBUPROFEN 400 MG TABLET (FP) PO PRN (10:26)
--- NOTE | 2017-11-24 11:56 | PN ---
Progress Note (short form) - Note Progress Note: Renal follow up for hyponatremia Pt seen and examined at the bedside awake and alert reports pain in right arm and shoulder no confusion, lethargy, weakness Vital Signs Temperature 99.1 F 11/24/17 07:01 Pulse Rate 94 H 11/24/17 10:37 Respiratory Rate 18 11/24/17 07:01 Blood Pressure 138/67 11/24/17 07:01 O2 Sat by Pulse Oximetry (%) 89 L 11/24/17 10:37 Intake & Output 11/21/17 11/22/17 11/23/17 11/24/17 23:59 23:59 23:59 23:59 Intake Total 250 270 250 100 Balance 250 270 250 100 NAD, awake and alert RRR, no M/R CTA soft NT/ND no bladder distension NO LE edema CBC, BMP 11/21/17 10:00 11/23/17 06:30 Current Medications Acetaminophen (Tylenol -) 650 mg PO Q6H PRN PRN Reason: FEVER Last Admin: 11/23/17 12:47 Dose: 650 mg Amlodipine Besylate (Norvasc -) 2.5 mg PO DAILY [facility] Last Admin: 11/24/17 10:16 Dose: 2.5 mg Docusate Sodium (Colace -) 100 mg PO BID [facility] Last Admin: 11/24/17 10:16 Dose: 100 mg CEFTRIAXONE 1 G/50 ML PREMIX (Ceftriaxone 1 Gm-D5w Bag) 50 mls @ 100 mls/hr IVPB DAILY [facility] Last Admin: 11/24/17 10:17 Dose: 100 mls/hr Ibuprofen (Motrin -) 400 mg PO Q6H PRN PRN Reason: FEVER Last Admin: 11/24/17 10:26 Dose: 400 mg Polyethylene Glycol (Miralax (For Daily Use) -) 17 gm PO BID [facility] Last Admin: 11/24/17 10:17 Dose: 17 grams Senna (Senna -) 2 tab PO HS [facility] Last Admin: 11/23/17 21:37 Dose: 2 tab Valsartan (Diovan -) 80 mg PO DAILY [facility] Last Admin: 11/24/17 10:16 Dose: 80 mg 87 year old woman with PMhx of Dementia, DVT on xarelto, Hypertension who presented s/p fall at home. Pt remembers falling, denies any LOC. No seizure activity noted. Pt is without complaints. #Acute Hyponatremia with excess ADH release/SIADH Serum na stable as of yesterday will decrease salt tabs to once daily trend Na daily continue fluid restriction for now #Fall continue supportive care as per primary for imaging of right arm and shoulder today pain control #Hematuria US showed non-obstructing stones no bladder masses or lesions on IV abx for UTI #Hypertension continue diovan goal BP < 140/90 Twin Darling DO
--- NOTE | 2017-11-24 13:40 | PN ---
Progress Note (short form) - Note Progress Note: Patient was experiencing SOB even on a few steps with PT and severe pain when her right biceps and upper arm was even touched gently today. Her Xarelto was D/ phyllis on admission after a fall at home (recent DVT) and hematuria on ker urinanalysis which has improved on IV antibiotics for Acute UTI. However with the continuing SOB and hypoxia even while on higher amounts of Nasal O2 I suspect ?PE as there was no fluid or infiltrate on her admission CXR. Also on closer exam of right biceps I worry about a tear in Biceps muscle or tendon. Kidney function normal so CAT scan of both areas with IV contrast ordered. Son Christofer present for my AM exam. On Exam: Vital Signs Temp 99.1 F 11/24/17 07:01 Pulse 94 H 11/24/17 10:37 Resp 18 11/24/17 07:01 BP 138/67 11/24/17 07:01 Pulse Ox 89 L 11/24/17 10:37 Intake & Output 11/23/17 11/24/17 11/24/17 23:59 11:59 23:59 Intake Total 250 100 Balance 250 100 Intake: IVPB 50 Oral 200 100 Other: Voiding Method Bedpan Bedpan # Unmeasured Voids Void 2 1 Bowel Movement No Alert SOB pale extreme tenderness on palpation right biceps muscle; no rash Chest: Decreased breath sounds Heart tachycardia Ext: No edema Abnormal Lab Results 11/23/17 21:00 Urine Ketones Trace H IMP: Acute Hypoxia R/O PE with PH of DVT Acute UTI Acute pain Right Biceps muscle Mild cognitive Impairment Fall at home Hypertension Severe DJD Left Hip Right Hip replacement. Plan: Stat CT Chest and right Biceps PT F/U Lab Pain Rx F/U SNF
[2017-11-24] MEDS: SODIUM CHLORIDE 1 GM TABLET PO SCH (14:26)
--- NOTE | 2017-11-24 15:07 | EKG ---
Test Reason : Blood Pressure : / mmHG Vent. 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
[2017-11-24] MEDS: SENNOSIDES 8.6MG TABLET (FP) PO SCH (21:22)
[2017-11-24] MEDS ORDERED: PT OWN MED DRAWER 7, Y5N ONE ×2 (22:17→23:12)
[2017-11-25] MEDS ORDERED: PT OWN MED DRAWER 7, Y5N ONE ×3 (06:47→14:12)
[2017-11-25 07:43] LABS: BASO % 0.8 % (0-2.0); EOS % 2.6 % (0-4.5); HEMATOCRIT 31.4 % (32.4-45.2); HEMOGLOBIN 10.3 GM/dL (10.7-15.3); LYMPH % 11.1 % (8-40); MCH 28.3 pg (25.7-33.7); MCHC 32.7 g/dl (32.0-36.0); MEAN CELL VOLUME 86.5 fl (80-96); MEAN PLT VOLUME 7.1 fl (7.5-11.1); MONO % 6.8 % (3.8-10.2); NEUT % 78.7 % (42.8-82.8); PLATELET COUNT 358 K/MM3 (134-434); RBC 3.63 M/mm3 (3.60-5.2); RDW 14.9 % (11.6-15.6); WHITE BLOOD COUNT 10.7 K/mm3 (4.0-10.0)
[2017-11-25 08:22] LABS: ANION GAP 8 (8-16); BLOOD UREA NITROGEN 16 mg/dL (7-18); CALCIUM 8.7 mg/dL (8.5-10.1); CHLORIDE 100 mmol/L (98-107); CO2 31 mmol/L (21-32); CREATININE 0.4 mg/dL (0.55-1.02); GLUCOSE,RANDOM 93 mg/dL (74-106); POTASSIUM 4.3 mmol/L (3.5-5.1); SODIUM 139 mmol/L (136-145)
--- NOTE | 2017-11-25 09:05 | PN ---
Progress Note (short form) - Note Progress Note: Patient seen and examined today. BUN and creatinine normal so will start Lasix IV today to help with Pleural effusion elimination and CHF as noted on Tuesdays CAT of chest. Less Right Biceps pain today. she is less distressed today over role Anxious to eat her breakfast orthopedic note seen; acute and chronic rotator cuff tear. Physical therapy to resume On exam: Vital Signs Temp 97.9 F 11/25/17 14:26 Pulse 86 11/25/17 14:26 Resp 18 11/25/17 14:26 BP 137/95 11/25/17 14:26 Pulse Ox 98 11/25/17 09:00 Intake & Output 11/24/17 11/25/17 11/25/17 23:59 11:59 23:59 Intake Total 350 100 Balance 350 100 Intake: IVPB 50 Oral 300 100 Other: Voiding Method Bedpan Bedpan # Unmeasured Voids Void 1 Bowel Movement Yes Yes # Bowel Movements 1 1 alert Chest rales at the bases. Cor regular Abdomen soft but slightly distended. Extremities no pedal edema or obvious Healed abrasion over the thoracic spine. Less tenderness right biceps and right shoulder to touch today. Abnormal Lab Results 11/25/17 11/25/17 06:00 06:00 WBC 10.7 H Hgb 10.3 L Hct 31.4 L MPV 7.1 L Creatinine 0.4 L impression: Fall at home Pleural effusions probably secondary to acute CHF exacerbated by recent saline infusions for marked hyponatremia. hyponatremia resolved. severe degenerative joint disease left hip. Right hip replacement. Hypertension. Acute urinary tract infection. This will be last day of IV ceftriaxone. Plan: PT today. Hope to hold back on nonsteroidals of pain in the right shoulder and biceps improves Followup lab test Hopefully, eventually, PT and visiting nurse at home depending on how she does in her walking the next few days.
[2017-11-25] MEDS: CEFTRIAXONE 1 G/50 ML PREMIX 50 ML IVPB SCH (09:40)
[2017-11-25] MEDS: FUROSEMIDE 40 MG/4 ML INJECTABLE VIAL IVPUSH SCH (09:40)
[2017-11-25] MEDS: amLODIPine BESYLATE 2.5 MG TABLET (FP) PO SCH (09:40)
[2017-11-25] MEDS: DOCUSATE SODIUM 100 MG CAPSULE (FP) PO SCH ×2 (09:40→21:50)
[2017-11-25] MEDS: VALSARTAN 80 MG TABLET (UD) PO SCH (09:40)
[2017-11-25] MEDS: POLYETHYLENE GLYCOL 3350 119 GM BTL PO SCH ×2 (09:41→21:50)
[2017-11-25] MEDS: IBUPROFEN 400 MG TABLET (FP) PO PRN (09:53)
--- NOTE | 2017-11-25 10:01 | CONSULT ---
Consult - text type - Consultation Consultation Note: FULL CONSULKT DICTATED IMP: ACUTE ON CHRONIC RIGHT ROTATOR CUFF TEAR PLAN: NTD, ANALGESICS, NSAIDS PRN. NO IMMOBILIZATION NECESSARY
--- NOTE | 2017-11-25 10:59 | CONS ---
ORTHOPEDIC CONSULTATION/[facility] DATE OF CONSULTATION: 11/25/2017 Patient is an 87-year-old female complaining of some pain in her right shoulder status post fall a few days ago, questionable exactly when, and the patient is not the greatest historian. Neither is the son who is at her bedside during the history. She does say that she had a right total hip replacement many years ago and was told she needed a left total hip replacement, but due to her age, they advised her against it. She did have an injection in that hip which sounds by an interventional radiologist a few weeks ago. It does not really bother her she says. Her shoulder hurts her, but she feels that it is somewhat better than it had been when she was admitted to the hospital. PHYSICAL EXAMINATION: There is no obvious ecchymosis, erythema, swelling. There is crepitus in the glenohumeral joint with passive range of motion of the shoulder. Nontender clavicle, AC joint, acromion, proximal humerus. She has some weakness with thumb-down adduction but can actively bring her arm above her head and behind her back as well and good active motion of elbow, wrist, and fingers. Neurovascularly intact. X-rays show no fracture, dislocation, or blastic lesions. IMPRESSION: Probable chronic rotator cuff tear with acute component which seems to be resolving by itself. As patient does not appear to be in any distress, I would not do anything further. No immobilization. She can have some analgesics or anti-inflammatories and some physical therapy. She can be weightbearing as tolerated on the arm. Of note, patient has poor range of motion of the left hip and significant shortening as compared to her right hip. Right hip seems to be moving pretty good, was otherwise neurovascularly intact. X-rays of her lower extremities show the well-seated right total hip replacement, severe DJD in the left hip. IMPRESSION: Severe degenerative joint disease, left hip. As it is not bothering her all that much at this time, nothing further to offer her. She can be weightbearing as tolerated, and I will follow up as an outpatient. PRERNA AMADOR M.D. [id number]
[2017-11-25] MEDS: SODIUM CHLORIDE 1 GM TABLET PO SCH (14:13)
[2017-11-25] MEDS: SENNOSIDES 8.6MG TABLET (FP) PO SCH (21:51)
[2017-11-26 07:16] LABS: ANION GAP 12 (8-16); BLOOD UREA NITROGEN 20 mg/dL (7-18); CALCIUM 8.8 mg/dL (8.5-10.1); CHLORIDE 99 mmol/L (98-107); CO2 27 mmol/L (21-32); GLUCOSE,RANDOM 99 mg/dL (74-106); MAGNESIUM 2.7 mg/dL (1.8-2.4); POTASSIUM 4.1 mmol/L (3.5-5.1); SODIUM 138 mmol/L (136-145)
[2017-11-26 07:17] LABS: CREATININE 0.4 mg/dL (0.55-1.02)
--- NOTE | 2017-11-26 09:28 | PN ---
Progress Note (short form) - Note Progress Note: Pt seen, doing ok, still c/o right shoulder, elbow and upper arm pain. Decreased ROM, with pain. Rec - only P.T., no surgery, pt is considering a cortisone injection as an out pt in the future
[2017-11-26] MEDS: IBUPROFEN 400 MG TABLET (FP) PO PRN ×3 (09:34→21:16)
[2017-11-26] MEDS: CEFTRIAXONE 1 G/50 ML PREMIX 50 ML IVPB SCH (09:35)
[2017-11-26] MEDS: DOCUSATE SODIUM 100 MG CAPSULE (FP) PO SCH ×2 (09:35→21:16)
[2017-11-26] MEDS: VALSARTAN 80 MG TABLET (UD) PO SCH (09:35)
[2017-11-26] MEDS: FUROSEMIDE 40 MG/4 ML INJECTABLE VIAL IVPUSH SCH (09:35)
[2017-11-26] MEDS: amLODIPine BESYLATE 2.5 MG TABLET (FP) PO SCH (09:35)
[2017-11-26] MEDS: POLYETHYLENE GLYCOL 3350 119 GM BTL PO SCH ×2 (09:37→21:18)
--- NOTE | 2017-11-26 09:50 | PN ---
Progress Note (short form) - Note Progress Note: Patient in bed but alert and awaiting breakfast Feels less SOB; now on trial IV Lasix No cough or chest pain Still some right shoulder pain but not as bad as on Thursday PT notes noted from yesterday. Patient qualified for home O2; still feel she may need temporary SNF On Exam: Vital Signs Temp 98.8 F 11/26/17 06:00 Pulse 84 11/26/17 06:00 Resp 18 11/26/17 06:00 BP 148/57 11/26/17 06:00 Pulse Ox 97 11/25/17 21:00 Intake & Output 11/25/17 11/25/17 11/26/17 11:59 23:59 11:59 Intake Total 100 Balance 100 Intake: Oral 100 Other: Voiding Method Bedpan Bedpan # Unmeasured Voids Void 2 Bowel Movement Yes # Bowel Movements 1 Alert Chest:Some rales at both bases Cor: Reg Abd: Does not feel distended today. Ext: No edema Abnormal Lab Results 11/26/17 06:15 BUN 20 H Creatinine 0.4 L Magnesium 2.7 H IMP: Fall at home Rotator Cuff injury right shoulder Pleural Effusions and Acute CHF DVT by history Acute UTI Hyoertension Plan: Continue IV Lasix F/U Lab Consider restart of Eliquis May need SNF but son hoping for D/C home
[2017-11-26] MEDS ORDERED: IBUPROFEN 400 MG TABLET (FP) PO PRN (09:51)
[2017-11-26] MEDS ORDERED: ACETAMINOPHEN 325 MG TABLET (FP) PO PRN (10:28)
[2017-11-26] MEDS: PANTOPRAZOLE 40 MG TABLET (FP) PO SCH (17:15)
[2017-11-26] MEDS ORDERED: RIVAROXABAN 20 MG TABLET PO SCH (18:00)
--- NOTE | 2017-11-26 18:09 | PN ---
Progress Note (short form) - Note Progress Note: Renal follow up for hyponatremia Pt seen and examined at the bedside awake and alert no acute complaints Vital Signs Temperature 97.9 F 11/26/17 14:41 Pulse Rate 91 H 11/26/17 14:41 Respiratory Rate 18 11/26/17 14:41 Blood Pressure 113/62 11/26/17 14:41 O2 Sat by Pulse Oximetry (%) 97 11/25/17 21:00 Intake & Output 11/23/17 11/24/17 11/25/17 11/26/17 23:59 23:59 23:59 23:59 Intake Total 250 450 100 50 Balance 250 450 100 50 NAD, awake and alert RRR, no M/R CTA soft NT/ND no bladder distension NO LE edema CBC, BMP 11/25/17 06:00 11/26/17 06:15 Current Medications Acetaminophen (Tylenol -) 650 mg PO Q6H PRN PRN Reason: PAIN Last Admin: 11/26/17 14:07 Dose: 650 mg Amlodipine Besylate (Norvasc -) 2.5 mg PO DAILY [facility] Last Admin: 11/26/17 09:35 Dose: 2.5 mg Docusate Sodium (Colace -) 100 mg PO BID [facility] Last Admin: 11/26/17 09:35 Dose: 100 mg Furosemide (Lasix Injection -) 40 mg IVPUSH DAILY [facility] Last Admin: 11/26/17 09:35 Dose: 40 mg Ibuprofen (Motrin -) 400 mg PO Q6H PRN PRN Reason: FEVER Last Admin: 11/26/17 17:15 Dose: 400 mg Pantoprazole Sodium (Protonix -) 40 mg PO DAILY [facility] Last Admin: 11/26/17 17:15 Dose: 40 mg Polyethylene Glycol (Miralax (For Daily Use) -) 17 gm PO BID [facility] Last Admin: 11/26/17 09:37 Dose: 17 grams Rivaroxaban (Xarelto -) 20 mg PO DAILY@1800 [facility] Last Admin: 11/26/17 17:16 Dose: 20 mg Senna (Senna -) 2 tab PO HS [facility] Last Admin: 11/25/17 21:51 Dose: 2 tab Valsartan (Diovan -) 80 mg PO DAILY [facility] Last Admin: 11/26/17 09:35 Dose: 80 mg 87 year old woman with PMhx of Dementia, DVT on xarelto, Hypertension who presented s/p fall at home. Pt remembers falling, denies any LOC. No seizure activity noted. Pt is without complaints. #Acute Hyponatremia with excess ADH release/SIADH Serum na stable will d/c salt tabs given effusions on chest CT trend Na continue fluid restriction for now #Fall continue supportive care as per primary ortho following #Hematuria US showed non-obstructing stones no bladder masses or lesions on IV abx for UTI #Hypertension continue alice william DO
[2017-11-26] MEDS: SENNOSIDES 8.6MG TABLET (FP) PO SCH (21:16)
[2017-11-27 09:05] LABS: ANION GAP 8 (8-16); BLOOD UREA NITROGEN 25 mg/dL (7-18); CALCIUM 8.5 mg/dL (8.5-10.1); CHLORIDE 99 mmol/L (98-107); CO2 31 mmol/L (21-32); GLUCOSE,RANDOM 83 mg/dL (74-106); POTASSIUM 4.3 mmol/L (3.5-5.1); SODIUM 138 mmol/L (136-145)
[2017-11-27 09:08] LABS: CREATININE 0.4 mg/dL (0.55-1.02)
--- NOTE | 2017-11-27 10:07 | DS ---
Physical Examination Vital Signs: Vital Signs Temperature 98.2 F 11/27/17 06:00 Pulse Rate 86 11/27/17 06:00 Respiratory Rate 18 11/27/17 06:00 Blood Pressure 140/84 11/27/17 06:00 O2 Sat by Pulse Oximetry (%) 97 11/26/17 21:00 Constitutional: Yes: Mild Distress (right arm pain when moved.) Eyes: Yes: Conjunctiva Clear Cardiovascular: Yes: Regular Rate and Rhythm Respiratory: Yes: Diminished (few rhonchi at bases) Gastrointestinal: Yes: Soft Renal/: No: Lin Present Extremities: Yes: Other (pain RUE at shoulder and below on upper arm: rotator cuff injury) Edema: No Neurological: Yes: Alert Labs: CBC, BMP 11/25/17 06:00 11/27/17 06:30 Discharge Summary Reason For Visit: LEUKOCYTOSIS FALL Current Active Problems Calculus of kidney (Acute) Fall (Acute) Hematuria due to acute cystitis (Acute) Leukocytosis (Acute) Acute pleural effusions Roator cuff injury right shoulder acute Acute hyponatremia Acute fall at home Severe DJD left hip Procedures: Principal: IV saline CT scans brain and cervical spine Other Procedures: IV lasix for pleural effusions and F/U lab Hospital Course: slow due to overall comorbidities and pain right shoulder Condition: Stable - Instructions Diet, Activity, Other Instructions: Sodium controlled diet Basic profile twice a week (on Diuretics) PT twice a day Nasal O2 2L/Min Referrals: Eduardo Styles MD [Primary Care Provider] - Disposition: ASSISTED FACILITY - Home Medications Comprehensive Discharge Medication List: Ambulatory Orders Telmisartan [Micardis] 20 mg PO DAILY 09/14/15 Rivaroxaban [Xarelto -] 20 mg PO BID #28 tablet 06/20/17 Amlodipine Besylate [Norvasc -] 11/19/17 Folic Acid 1 mg PO DAILY 11/19/17
[2017-11-27] MEDS: DOCUSATE SODIUM 100 MG CAPSULE (FP) PO SCH (11:18)
[2017-11-27] MEDS: VALSARTAN 80 MG TABLET (UD) PO SCH (11:18)
[2017-11-27] MEDS: PANTOPRAZOLE 40 MG TABLET (FP) PO SCH (11:18)
[2017-11-27] MEDS: POLYETHYLENE GLYCOL 3350 119 GM BTL PO SCH (11:18)
[2017-11-27] MEDS: amLODIPine BESYLATE 2.5 MG TABLET (FP) PO SCH (11:18)
[2017-11-27] MEDS: FUROSEMIDE 40 MG/4 ML INJECTABLE VIAL IVPUSH SCH (11:19)
[2017-11-27] MEDS: IBUPROFEN 400 MG TABLET (FP) PO PRN (11:19)
--- NOTE | 2017-11-27 11:42 | PN ---
Progress Note (short form) - Note Progress Note: Ortho Pt seen and examined- right shoulder and left hip pain- improved a/p Pt defers injection at present time being d/c'd today f/u as outpt as needed d/w Dr. Dockery
[2017-11-27 13:18] VITALS: BP 149/67; PULSE 98; TEMP 97.9
--- NOTE | 2017-11-27 13:28 | PN ---
Progress Note (short form) - Note Progress Note: Renal follow up for hyponatremia Pt seen and examined at the bedside awake and alert no acute complaints Vital Signs Temperature 97.9 F 11/27/17 10:00 Pulse Rate 98 H 11/27/17 10:00 Respiratory Rate 18 11/27/17 10:00 Blood Pressure 149/67 11/27/17 10:00 O2 Sat by Pulse Oximetry (%) 97 11/26/17 21:00 Intake & Output 11/24/17 11/25/17 11/26/17 11/27/17 23:59 23:59 23:59 23:59 Intake Total 450 100 50 100 Balance 450 100 50 100 NAD, awake and alert RRR, no M/R CTA soft NT/ND no bladder distension NO LE edema CBC, BMP 11/25/17 06:00 11/27/17 06:30 Current Medications Acetaminophen (Tylenol -) 650 mg PO Q6H PRN PRN Reason: PAIN Last Admin: 11/26/17 14:07 Dose: 650 mg Amlodipine Besylate (Norvasc -) 2.5 mg PO DAILY [facility] Last Admin: 11/27/17 11:18 Dose: 2.5 mg Docusate Sodium (Colace -) 100 mg PO BID [facility] Last Admin: 11/27/17 11:18 Dose: 100 mg Furosemide (Lasix -) 40 mg PO DAILY [facility] Last Admin: 11/27/17 11:24 Dose: 40 mg Ibuprofen (Motrin -) 400 mg PO Q6H PRN PRN Reason: FEVER Last Admin: 11/27/17 11:19 Dose: 400 mg Pantoprazole Sodium (Protonix -) 40 mg PO DAILY [facility] Last Admin: 11/27/17 11:18 Dose: 40 mg Polyethylene Glycol (Miralax (For Daily Use) -) 17 gm PO BID [facility] Last Admin: 11/27/17 11:18 Dose: 17 grams Rivaroxaban (Xarelto -) 20 mg PO DAILY@1800 [facility] Last Admin: 11/26/17 17:16 Dose: 20 mg Senna (Senna -) 2 tab PO HS [facility] Last Admin: 11/26/17 21:16 Dose: 2 tab Valsartan (Diovan -) 80 mg PO DAILY [facility] Last Admin: 11/27/17 11:18 Dose: 80 mg 87 year old woman with PMhx of Dementia, DVT on xarelto, Hypertension who presented s/p fall at home. Pt remembers falling, denies any LOC. No seizure activity noted. Pt is without complaints. #Acute Hyponatremia with excess ADH release/SIADH serum Na stable off salt tabs should have labs repeated as outpatient with PMD next week #Fall continue supportive care as per primary ortho following #Hematuria US showed non-obstructing stones no bladder masses or lesions s/p IV Abx #Hypertension continue alice william DO
[2017-11-28] MEDS ORDERED: FUROSEMIDE 40 MG TABLET (FP) PO SCH (10:00)
== END 2017-11-27 15:04 | DRG 643 ==
LOC: JER 12:20 → JERBED 20:21 → INTOOBSV 20:21 → J8W 11-19 05:14 → OBSVTOIN 11-20 10:03
PROVIDERS: ADMIT Internal Medicine; ATTEND Internal Medicine
DX: E22.2 Syndrome of inappropriate secretion of antidiuretic hormone (principal); E43 Unspecified severe protein-calorie malnutrition; N30.01 Acute cystitis with hematuria; J90 Pleural effusion, not elsewhere classified; B96.29 Other Escherichia coli [E. coli] as the cause of diseases classified elsewhere; R09.02 Hypoxemia; G31.84 Mild cognitive impairment of uncertain or unknown etiology; S46.011A Strain of muscle(s) and tendon(s) of the rotator cuff of right shoulder, initial encounter; W01.0XXA Fall on same level from slipping, tripping and stumbling without subsequent striking against object, initial encounter; M25.552 Pain in left hip; Y93.01 Activity, walking, marching and hiking; Y92.89 Other specified places as the place of occurrence of the external cause; Y99.8 Other external cause status; D64.9 Anemia, unspecified; N20.0 Calculus of kidney; Z86.718 Personal history of other venous thrombosis and embolism; Z79.01 Long term (current) use of anticoagulants; Z85.3 Personal history of malignant neoplasm of breast; Z91.81 History of falling; M16.12 Unilateral primary osteoarthritis, left hip; Z96.641 Presence of right artificial hip joint; K59.00 Constipation, unspecified
CPT/HCPCS: 36415; 70450-TC; 71046-TC-FY; 71275-TC; 73070-TC-RT-FY; 73201-TC-RT; 73523-TC-FY; 74176-TC; 76775-TC; 76856-TC; 80048; 80053; 81003; 81015; 82550; 82553; 83735; 83880; 83930; 83935; 84100; 84295; 84300; 84484; 85025; 85027; 85610; 85730; 87040; 87086; 87186; 93005; 93010; 94761; 97116-GP; 97161-GP; 99283-25; G0378